=== PATIENT | female | born 1950 | race African-American/Black ===

== ENCOUNTER 2017-01-08 15:58 | Inpatient (IN) | payer OTHER, MEDICARE ==
[2017-01-08] VITALS (23 sets, daily range): BP systolic 161–247; BP diastolic 81–143
[~2017-01-08] VITALS: Ht 175.3 cm; Wt 75.3 kg
[2017-01-08] MEDS ORDERED: Lisinopril 10mg tab ORAL ONE (16:30)
[2017-01-08 17:10] LABS: BASOPHILS % (AUTO) 0.7 % (0.0-2.0); EOSINOPHILS % (AUTO) 0.5 % (0.0-3.0); MEAN CORPUSCULAR HEMOGLOBIN 28.6 PG (27.0-31.0); MEAN CORPUSCULAR HGB CONC 33.1 G/DL (32.0-36.0); MEAN CORPUSCULAR VOLUME 86 FL (80-99); MEAN PLATELET VOLUME 9.1 FL (6.5-10.1); MONOCYTES % (AUTO) 8.7 % (1.0-10.0); NEUTROPHILS % (AUTO) 62.1 % (45.0-75.0); PLATELET COUNT 252 K/UL (150-450); RED BLOOD COUNT 5.49 M/UL (4.20-5.40); RED CELL DISTRIBUTION WIDTH 12.8 % (11.6-14.8); WHITE BLOOD COUNT 6.5 K/UL (4.8-10.8)
[2017-01-08 17:27] LABS: TROPONIN I < 0.30 ng/mL (<=0.30)
[2017-01-08 17:30] LABS: ALBUMIN/GLOBULIN RATIO 1.3 (1.0-2.7); CALCIUM 10.1 mg/dL (8.6-10.2); CREATININE 1.2 mg/dL (0.5-0.9); GLOMERULAR FILTRATION RATE 54.2 mL/min (>60); POTASSIUM 3.5 mEQ/L (3.4-4.9); TOTAL PROTEIN 8.2 g/dL (6.6-8.7)
--- NOTE | 2017-01-08 17:36 | Emergency Room Report ---
History of Present Illness General Chief Complaint: Hypertension Source: Patient Present Illness HPI [id number] BIBEMS from [facility] Urgent care for "hypertensive emergency" per GEORGE. GEORGE from [facility] urgent care called that patient has "new TWI in V4-6" not seen on previous 2016 ECG. TWI in 1 And AVL are old however. Patient went to urgent care because "I felt dizzy today." Now asymptomatic. Denies chest pain , SOB, headache, back pain. Has known HTN. Takes Norvasc 10mg and Lisinopril ?12. Didnt take last 3 days because "I didnt feel well" but cannot qualify what she means by that. Denies nausea/vomiting, abd pain, chest pain, SOB, headache that would've prevented her from taking her meds. Allergies: Coded Allergies: ACETAMINOPHEN (Unverified Allergy, Unknown, 01/08/17) OXYCODONE (Unverified Allergy, Unknown, 01/08/17) Patient History Past Medical History: HTN Past Surgical History: none Pertinent Family History: none Social History: Denies: alcohol use, drug use, smoking Last Menstrual Period: hystrectomy Now: No Immunizations: UTD Reviewed Nursing Documentation: PMH: Agreed, PSxH: Agreed Nursing Documentation-PMH Past Medical History: No History, Except For Hx Hypertension: Yes Review of Systems All Other Systems: negative except mentioned in HPI Physical Exam Vital Signs Date Time Temp Pulse Resp B/P Pulse Ox O2 Delivery O2 Flow Rate FiO2 01/08/17 15:52 98.8 68 16 247/123 99 Room Air Sp02 EP Interpretation: reviewed, normal General Appearance: normal inspection, well appearing, no apparent distress, alert, GCS 15, non-toxic, other - Well appearing laughing, smiling Head: normocephalic, atraumatic Eyes: bilateral eye EOMI, bilateral eye PERRL ENT: normal ENT inspection, hearing grossly normal, normal voice Neck: normal inspection, full range of motion, supple, no bony tend Respiratory: normal inspection, lungs clear, normal breath sounds, no respiratory distress, no retraction, no wheezing Cardiovascular #1: regular rate, rhythm, no edema Gastrointestinal: normal inspection, normal bowel sounds, non tender, soft, no guarding, no hernia Genitourinary: no CVA tenderness Musculoskeletal: normal inspection, back normal, normal range of motion, Shabbir' s Sign negative Neurologic: normal inspection, alert, oriented x3, responsive, consulting group 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 There is some ST downsloping/ repol likely from LVH but no TWI. There is however dynamic change in V4; QRS is no mostly downwards. - Labs show JACINTO - ? end organ damage? - No improvement in BP with PO meds - Started on Esmolol gtt after esmolol bolus Endorsed to ICU for hypertensive emergency Dr Hanson at 638pm EKG Diagnostic Results Rate: normal, other - 1st degree AV block Rhythm: NSR ST Segments: other - ST depressions in lateral leads V5-6 Rhythm Strip Diag. Results EP Interpretation: yes Rate: 71 Rhythm: NSR, no PVC's, no ectopy Chest X-Ray Diagnostic Results Chest X-Ray Diagnostic Results : Chest X-Ray Ordered: Yes # of Views/Limited/Complete: 1 View Indication: Other - HTN EP Interpretation: Yes Interpretation: no consolidation, no effusion, no pneumothorax, no acute cardiopulmonary disease Impression: No acute disease Interpreting ER Provider: Electronically signed by Dr Fernandez Last Vital Signs Date Time Temp Pulse Resp B/P Pulse Ox O2 Delivery O2 Flow Rate FiO2 01/08/17 16:34 68 247/123 01/08/17 16:20 16 Room Air 01/08/17 16:20 98.8 99 Status: improved Disposition: ADMITTED INPATIENT Condition: Critical FRITZ FERNANDEZ M.D. Jan 08, 2017 17:36
[2017-01-08 17:40] LABS: CKMB 2.3 ng/mL (< 3.8)
[2017-01-08] MEDS ORDERED: Esmolol 100mg/10ml Inj IV ONE (17:45)
[2017-01-08] MEDS ORDERED: LISINOPRIL20 MG ORAL (18:00)
[2017-01-08] MEDS ORDERED: NORVASC10 MG ORAL (18:00)
[2017-01-08] MEDS ORDERED: ESMOLOL IV SCH (18:30)
[2017-01-08] MEDS ORDERED: NS IV SCH (18:30)
[2017-01-08] MEDS ORDERED: Nitroglycerin Subl 0.4mg tab (Bottle Of 25) SL PRN (19:00)
[2017-01-08] MEDS ORDERED: Miralax 17gm pkt ORAL PRN (19:00)
[2017-01-08] MEDS ORDERED: Diltiazem 25mg/5ml IV PRN (19:00)
[2017-01-08] MEDS ORDERED: DuoNeb 0.5-3(2.5)mg/3ml neb HHN PRN (19:00)
[2017-01-08] MEDS: Heparin 5000 units/ml inj SUBQ SCH (21:17)
--- NOTE | 2017-01-08 22:52 | History and Physical ---
History of Present Illness General Date patient seen: Jan 08, 2017 Reason for Hospitalization: Hypertension Present Illness HPI 66 year old female with PMHx of HTN, who stopped his BP meds, Norvasc 10mg and Lisinopri a few days ago, brought in from [facility] Ur[facility] care for " hypertensive emergency" Patient went to urgent care because "I felt dizzy today." Now asymptomatic. Denies chest pain , SOB, headache, back pain. Denies nausea/vomiting, abd pain , chest pain, SOB, headache. PA from [facility] urgent care called that patient has "new TWI in V4-6" not seen on previous 2016 ECG. TWI in 1 And AVL are old however. Patient was started on Esmolol drip in ER and transferring to ICU. Allergies: Coded Allergies: ACETAMINOPHEN (Unverified Allergy, Unknown, 01/08/17) OXYCODONE (Unverified Allergy, Unknown, 01/08/17) Medication History Scheduled Amlodipine Besylate (Norvasc), 10 MG ORAL DAILY, (Reported) Lisinopril (Lisinopril*), 10 MG ORAL DAILY, (Reported) Patient History Healthcare decision maker Resuscitation status Full Code Advanced Directive on File No Past Medical/Surgical History Past Medical/Surgical History: (1) Hypertension Review of Systems All Other Systems: negative except mentioned in HPI Physical Exam General Appearance: WD/WN Lines, tubes and drains: peripheral, central line HEENT: normocephalic, atraumatic Neck: non-tender, normal alignment Respiratory/Chest: chest wall non-tender, lungs clear Breasts: no masses Cardiovascular/Chest: normal peripheral pulses Abdomen: normal bowel sounds Genitourinary/Rectal: normal genital exam, normal rectal exam Extremities: normal range of motion Skin Exam: normal pigmentation 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 Last 24 Hour Vital Signs Date Time Temp Pulse Resp B/P Pulse Ox O2 Delivery O2 Flow Rate FiO2 01/08/17 21:06 68 20 193/95 99 Room Air 01/08/17 21:00 62 20 187/102 99 Room Air 01/08/17 20:45 68 20 193/95 99 Room Air 01/08/17 20:30 68 20 196/89 99 Room Air 01/08/17 20:15 68 20 204/94 99 Room Air 01/08/17 20:07 98.8 71 20 232/104 96 Room Air 01/08/17 20:00 66 01/08/17 20:00 98.4 68 20 204/104 99 Room Air 01/08/17 19:18 98.8 71 20 232/104 96 Room Air 01/08/17 19:00 78 20 232/115 96 Room Air 01/08/17 18:45 68 16 241/111 99 Room Air 01/08/17 18:30 80 18 242/122 99 Room Air 01/08/17 17:30 72 18 208/143 98 Room Air 01/08/17 16:34 68 247/123 01/08/17 16:34 247/123 01/08/17 16:20 68 16 Room Air 01/08/17 16:20 98.8 68 16 247/123 99 Room Air 01/08/17 15:52 98.8 68 16 247/123 99 Room Air Laboratory Tests Test 01/08/17 17:00 White Blood Count 6.5 K/UL (4.8-10.8) Red Blood Count 5.49 M/UL (4.20-5.40) H Hemoglobin 15.7 G/DL (12.0-16.0) Hematocrit 47.4 % (37.0-47.0) H Mean Corpuscular Volume 86 FL (80-99) Mean Corpuscular Hemoglobin 28.6 PG (27.0-31.0) Mean Corpuscular Hemoglobin Concent 33.1 G/DL (32.0-36.0) Red Cell Distribution Width 12.8 % (11.6-14.8) Platelet Count 252 K/UL (150-450) Mean Platelet Volume 9.1 FL (6.5-10.1) Neutrophils (%) (Auto) 62.1 % (45.0-75.0) Lymphocytes (%) (Auto) 28.0 % (20.0-45.0) Monocytes (%) (Auto) 8.7 % (1.0-10.0) Eosinophils (%) (Auto) 0.5 % (0.0-3.0) Basophils (%) (Auto) 0.7 % (0.0-2.0) Sodium Level 140 mEQ/L (135-145) Potassium Level 3.5 mEQ/L (3.4-4.9) Chloride Level 98 mEQ/L (98-107) Carbon Dioxide Level 27 mEQ/L (20-30) Anion Gap 15 (5-15) Blood Urea Nitrogen 13 mg/dL (7-23) Creatinine 1.2 mg/dL (0.5-0.9) H Estimat Glomerular Filtration Rate 54.2 mL/min (>60) Glucose Level 142 mg/dL (74-106) H Calcium Level 10.1 mg/dL (8.6-10.2) Total Bilirubin 0.3 mg/dL (0.0-1.2) Aspartate Amino Transf (AST/SGOT) 18 U/L (5-40) Alanine Aminotransferase (ALT/SGPT) 16 U/L (3-33) Alkaline Phosphatase 88 U/L (35-104) Total Creatine Kinase 59 U/L (26-140) Creatine Kinase MB 2.3 ng/mL (< 3.8) Creatine Kinase MB Relative Index 3.8 Troponin I < 0.30 ng/mL (<=0.30) Total Protein 8.2 g/dL (6.6-8.7) Albumin 4.7 g/dL (3.5-5.2) Globulin 3.5 g/dL Albumin/Globulin Ratio 1.3 (1.0-2.7) Height (Feet): 5 Height (Inches): 9.00 Weight (Pounds): 165 Medications Current Medications Medications (Trade) Dose Ordered Sig/Melanie Route PRN Reason Start Time Stop Time Status Last Admin Dose Admin Albuterol/ Ipratropium (DuoNeb 0.5-3(2.5)mg/3ml) 3 ml Q4H PRN HHN Shortness of Breath 01/08/17 19:00 01/13/17 18:59 Amlodipine Besylate (Norvasc) 10 mg DAILY ORAL 01/09/17 09:00 02/08/17 08:59 Diltiazem HCl (Cardizem) 10 mg Q1H PRN IV HR > 120 01/08/17 19:00 02/07/17 18:59 Enalaprilat (Vasotec) 2.5 mg Q6H PRN IV sbp more than 160 01/08/17 19:00 02/07/17 18:59 Esmolol HCl (Brevibloc) 250 ml @ 0 mls/hr Q24H IV 01/08/17 21:00 8/30/17 20:59 01/08/17 21:15 Heparin Sodium (Porcine) 5000 units 5,000 units EVERY 12 HOURS SUBQ 01/08/17 21:00 02/07/17 20:59 01/08/17 21:17 Nitroglycerin (Ntg) 0.4 mg Every 5 Minutes PRN SL Prn Chest Pain 01/08/17 19:00 02/07/17 18:59 Ondansetron HCl (Zofran) 4 mg Q6H PRN IVP Nausea & Vomiting 01/08/17 19:00 02/07/17 18:59 Pantoprazole (Protonix) 40 mg DAILY ORAL 01/09/17 09:00 02/08/17 08:59 Polyethylene Glycol (Miralax) 17 gm DAILYPRN PRN ORAL Constipation 01/08/17 19:00 02/07/17 18:59 Temazepam (Restoril) 15 mg HSPRN PRN ORAL Insomnia 01/08/17 19:00 01/15/17 18:59 Assessment/Plan Problem List: (1) Hypertensive emergency ICD Codes: I16.1 - Hypertensive emergency SNOMED: 595569139030817 (2) Acute encephalopathy ICD Codes: G93.40 - Encephalopathy, unspecified SNOMED: 8109039 (3) Hypertensive emergency, no CHF ICD Codes: I16.1 - Hypertensive emergency SNOMED: 877024911375713 Assessment/Plan icu monitoring Esmolol drip echo cardiac evaluation dvt prophylaxis resume home bp medIGLESIA Gonzalez Jan 08, 2017 22:51
[2017-01-08] MEDS: Enalaprilat 2.5mg/2ml Inj IV PRN (23:32)
[2017-01-09] VITALS (59 sets, daily range): BP systolic 143–188; BP diastolic 64–134
[2017-01-09 05:39] LABS: BASOPHILS % (AUTO) 0.5 % (0.0-2.0); EOSINOPHILS % (AUTO) 0.5 % (0.0-3.0); LYMPHOCYTES % (AUTO) 19.9 % (20.0-45.0); MEAN CORPUSCULAR HEMOGLOBIN 28.2 PG (27.0-31.0); MEAN CORPUSCULAR HGB CONC 32.4 G/DL (32.0-36.0); MEAN CORPUSCULAR VOLUME 87 FL (80-99); MEAN PLATELET VOLUME 8.8 FL (6.5-10.1); MONOCYTES % (AUTO) 8.1 % (1.0-10.0); NEUTROPHILS % (AUTO) 70.9 % (45.0-75.0); PLATELET COUNT 295 K/UL (150-450); RED BLOOD COUNT 4.92 M/UL (4.20-5.40); RED CELL DISTRIBUTION WIDTH 12.4 % (11.6-14.8); WHITE BLOOD COUNT 7.1 K/UL (4.8-10.8)
[2017-01-09 05:42] LABS: PROTHROMBIN TIME 10.8 SEC (9.30-11.50)
[2017-01-09] MEDS: Enalaprilat 2.5mg/2ml Inj IV PRN (05:45)
[2017-01-09 06:09] LABS: TROPONIN I < 0.30 ng/mL (<=0.30)
[2017-01-09 06:10] LABS: CHOLESTEROL/HDL RATIO 5.9 (3.3-4.4); CRP QUANT 1.1 mg/dL (< 0.5)
[2017-01-09 06:24] LABS: THYROID STIMULATING HORMONE 2.01 uIU/mL (0.300-4.500)
[2017-01-09] MEDS: Lisinopril 20mg tab ORAL SCH ×2 (08:52→20:29)
[2017-01-09] MEDS: Heparin 5000 units/ml inj SUBQ SCH ×2 (08:56→20:30)
--- NOTE | 2017-01-09 09:51 | Pulmonolgy Critical Care Note ---
Critical Care - Asmt/Plan Problems: (1) Acute encephalopathy (2) Hypertensive emergency (3) Hypertensive nephropathy Respiratory: monitor respiratory rate Cardiac: other - taper off esmolol, add hydralazine Renal: F/U I&O Gastrointestinal: continue feedings/current rate Hematologic: monitor H/H Neurologic: PRN Ativan, PRN Morphine Prophylaxis: Heparin Disposition: keep in ICU Notes Reviewed: renal Discussed with: nurses, bilingual patient support caseworkermanager systems - Objective Last 24 Hour Vital Signs Date Time Temp Pulse Resp B/P Pulse Ox O2 Delivery O2 Flow Rate FiO2 01/09/17 08:52 170/81 01/09/17 08:52 55 170/81 01/09/17 08:45 55 15 170/81 99 Room Air 01/09/17 08:30 55 13 149/79 99 Room Air 01/09/17 08:15 55 15 166/82 98 Room Air 01/09/17 08:00 98.6 56 12 168/84 98 Room Air 01/09/17 08:00 60 01/09/17 07:45 56 13 167/84 98 Room Air 01/09/17 07:30 56 12 170/82 99 Room Air 01/09/17 07:18 57 18 Room Air 21 01/09/17 07:15 57 12 156/81 96 Room Air 01/09/17 07:00 58 13 162/87 98 Room Air 01/09/17 06:45 65 15 188/134 99 Room Air 01/09/17 06:30 58 19 151/82 98 Room Air 01/09/17 06:15 58 20 173/70 98 Room Air 01/09/17 06:00 57 19 154/83 98 Room Air 01/09/17 05:45 57 18 166/83 98 Room Air 01/09/17 05:45 172/77 01/09/17 05:30 57 16 172/77 98 Room Air 01/09/17 05:15 56 19 164/70 98 Room Air 01/09/17 05:00 57 19 164/80 98 Room Air 01/09/17 04:45 59 15 163/80 97 Room Air 01/09/17 04:30 57 15 163/78 97 Room Air 01/09/17 04:15 59 15 176/78 97 Room Air 01/09/17 04:00 57 01/09/17 04:00 58 19 166/82 82 Room Air 01/09/17 03:45 60 15 166/87 97 Room Air 01/09/17 03:30 59 15 174/85 98 Room Air 01/09/17 03:15 58 15 177/70 98 Room Air 01/09/17 03:00 57 18 179/83 98 Room Air 01/09/17 02:45 59 18 172/87 99 Room Air 01/09/17 02:30 59 18 163/85 99 Room Air 01/09/17 02:15 60 17 144/82 99 Room Air 01/09/17 02:00 58 18 147/80 97 Room Air 01/09/17 01:45 62 17 149/75 99 Room Air 01/09/17 01:30 60 18 150/77 99 Room Air 01/09/17 01:15 63 18 173/125 99 Room Air 01/09/17 01:00 59 20 160/79 97 Room Air 01/09/17 00:45 59 19 159/75 97 Room Air 01/09/17 00:30 59 19 152/71 97 Room Air 01/09/17 00:15 56 19 154/69 98 Room Air 01/09/17 00:00 98.4 57 19 144/65 97 Room Air 01/09/17 00:00 57 01/08/17 23:45 58 19 161/81 97 Room Air 01/08/17 23:32 180/89 01/08/17 23:30 58 16 170/87 98 Room Air 01/08/17 23:15 58 14 180/89 99 Room Air 01/08/17 23:00 59 16 187/93 99 Room Air 01/08/17 22:45 58 15 187/93 99 Room Air 01/08/17 22:30 59 15 176/109 99 Room Air 01/08/17 22:15 59 13 194/93 99 Room Air 01/08/17 22:00 57 16 186/85 99 Room Air 01/08/17 21:45 59 16 174/88 99 Room Air 01/08/17 21:30 60 13 172/85 98 Room Air 01/08/17 21:15 60 20 198/122 98 Room Air 01/08/17 21:06 68 20 193/95 99 Room Air 01/08/17 21:00 62 20 187/102 99 Room Air 01/08/17 20:45 68 20 193/95 99 Room Air 01/08/17 20:30 68 20 196/89 99 Room Air 01/08/17 20:15 68 20 204/94 99 Room Air 01/08/17 20:07 98.8 71 20 232/104 96 Room Air 01/08/17 20:00 66 01/08/17 20:00 98.4 68 20 204/104 99 Room Air 01/08/17 19:18 98.8 71 20 232/104 96 Room Air 01/08/17 19:00 78 20 232/115 96 Room Air 01/08/17 18:45 68 16 241/111 99 Room Air 01/08/17 18:30 80 18 242/122 99 Room Air 01/08/17 17:30 72 18 208/143 98 Room Air 01/08/17 16:34 68 247/123 01/08/17 16:34 247/123 01/08/17 16:20 68 16 Room Air 01/08/17 16:20 98.8 68 16 247/123 99 Room Air 01/08/17 15:52 98.8 68 16 247/123 99 Room Air Status: awake Condition: critical HEENT: atraumatic Neck: full ROM Heart: HR/BP stable, HR/BP unstable Abdomen: soft, non-tender, feeding tube Extremities: no C/C/E Critical Care - Subjective ROS Limited/Unobtainable: No ICU Day: 2 Condition: critical EKG Rhythm: Sinus Rhythm FI02: 21 Sputum Amount: None Secretions: none Drips: esmolol I&O: Intake and Output 01/08/17 01/09/17 19:00 07:00 Intake Total 40.8 ml 832.764 ml Output Total 600 ml Balance 40.8 ml 232.764 ml Intake Oral 200 ml IV Total 40.8 ml 632.764 ml Output Urine Total 600 ml # Voids 2 CXR: MASOUD Labs: Laboratory Tests Test 01/08/17 17:00 01/09/17 04:15 White Blood Count 6.5 K/UL (4.8-10.8) 7.1 K/UL (4.8-10.8) Red Blood Count 5.49 M/UL (4.20-5.40) H 4.92 M/UL (4.20-5.40) Hemoglobin 15.7 G/DL (12.0-16.0) 13.9 G/DL (12.0-16.0) Hematocrit 47.4 % (37.0-47.0) H 42.9 % (37.0-47.0) Mean Corpuscular Volume 86 FL (80-99) 87 FL (80-99) Mean Corpuscular Hemoglobin 28.6 PG (27.0-31.0) 28.2 PG (27.0-31.0) Mean Corpuscular Hemoglobin Concent 33.1 G/DL (32.0-36.0) 32.4 G/DL (32.0-36.0) Red Cell Distribution Width 12.8 % (11.6-14.8) 12.4 % (11.6-14.8) Platelet Count 252 K/UL (150-450) 295 K/UL (150-450) Mean Platelet Volume 9.1 FL (6.5-10.1) 8.8 FL (6.5-10.1) Neutrophils (%) (Auto) 62.1 % (45.0-75.0) 70.9 % (45.0-75.0) Lymphocytes (%) (Auto) 28.0 % (20.0-45.0) 19.9 % (20.0-45.0) L Monocytes (%) (Auto) 8.7 % (1.0-10.0) 8.1 % (1.0-10.0) Eosinophils (%) (Auto) 0.5 % (0.0-3.0) 0.5 % (0.0-3.0) Basophils (%) (Auto) 0.7 % (0.0-2.0) 0.5 % (0.0-2.0) Sodium Level 140 mEQ/L (135-145) Potassium Level 3.5 mEQ/L (3.4-4.9) Chloride Level 98 mEQ/L (98-107) Carbon Dioxide Level 27 mEQ/L (20-30) Anion Gap 15 (5-15) Blood Urea Nitrogen 13 mg/dL (7-23) Creatinine 1.2 mg/dL (0.5-0.9) H Estimat Glomerular Filtration Rate 54.2 mL/min (>60) Glucose Level 142 mg/dL (74-106) H Calcium Level 10.1 mg/dL (8.6-10.2) Total Bilirubin 0.3 mg/dL (0.0-1.2) Aspartate Amino Transf (AST/SGOT) 18 U/L (5-40) Alanine Aminotransferase (ALT/SGPT) 16 U/L (3-33) Alkaline Phosphatase 88 U/L (35-104) Total Creatine Kinase 59 U/L (26-140) Creatine Kinase MB 2.3 ng/mL (< 3.8) Creatine Kinase MB Relative Index 3.8 Troponin I < 0.30 ng/mL (<=0.30) < 0.30 ng/mL (<=0.30) Total Protein 8.2 g/dL (6.6-8.7) Albumin 4.7 g/dL (3.5-5.2) Globulin 3.5 g/dL Albumin/Globulin Ratio 1.3 (1.0-2.7) Prothrombin Time 10.8 SEC (9.30-11.50) Prothromb Time International Ratio 1.0 (0.9-1.1) Activated Partial Thromboplast Time 26 SEC (23-33) C-Reactive Protein, Quantitative 1.1 mg/dL (< 0.5) H Triglycerides Level 97 mg/dL (< 150) Cholesterol Level 290 mg/dL (< 200) H LDL Cholesterol 222 mg/dL (60-99) H HDL Cholesterol 49 mg/dL (> 60) Cholesterol/HDL Ratio 5.9 (3.3-4.4) H Thyroid Stimulating Hormone (TSH) 2.010 uIU/mL (0.300-4.500) IGLESIA LOPES Jan 09, 2017 09:51
--- NOTE | 2017-01-09 10:32 | Diagnostic Imaging Report ---
Indication: Chest pain Technique: Single portable AP view of the chest. Findings: Comparison: None. Aortic arch mildly calcified. The bones and extra pulmonary soft tissues, remainder of the cardiomediastinal silhouette, pulmonary vasculature and parenchyma, and pleural surfaces are unremarkable. IMPRESSION: Sclerosis Otherwise negative portable AP chest.
--- NOTE | 2017-01-09 12:03 | Cardiology Progress Note ---
Assessment/Plan Assessment/Plan hytensive encphaloapthy hyperlipidemia med noncomplaince hypothryoid resume clinodien to prevent rebound increase joce stop esmolol drip on clonidine [id number] Objective Last 24 Hour Vital Signs Date Time Temp Pulse Resp B/P Pulse Ox O2 Delivery O2 Flow Rate FiO2 01/09/17 11:45 57 20 167/83 97 Room Air 01/09/17 11:30 55 26 163/76 98 Room Air 01/09/17 11:15 56 21 163/76 98 Room Air 01/09/17 11:00 57 24 156/72 100 Room Air 01/09/17 10:15 56 36 144/87 98 Room Air 01/09/17 10:00 53 20 162/80 98 Room Air 01/09/17 09:45 55 15 162/80 99 Room Air 01/09/17 09:30 56 14 157/78 99 Room Air 01/09/17 09:15 53 16 157/78 99 Room Air 01/09/17 09:00 53 17 167/82 98 Room Air 01/09/17 08:52 170/81 01/09/17 08:52 55 170/81 01/09/17 08:45 55 15 170/81 99 Room Air 01/09/17 08:30 55 13 149/79 99 Room Air 01/09/17 08:15 55 15 166/82 98 Room Air 01/09/17 08:00 98.6 56 12 168/84 98 Room Air 01/09/17 08:00 60 01/09/17 07:45 56 13 167/84 98 Room Air 01/09/17 07:30 56 12 170/82 99 Room Air 01/09/17 07:18 57 18 Room Air 21 01/09/17 07:15 57 12 156/81 96 Room Air 01/09/17 07:00 58 13 162/87 98 Room Air 01/09/17 06:45 65 15 188/134 99 Room Air 01/09/17 06:30 58 19 151/82 98 Room Air 01/09/17 06:15 58 20 173/70 98 Room Air 01/09/17 06:00 57 19 154/83 98 Room Air 01/09/17 05:45 57 18 166/83 98 Room Air 01/09/17 05:45 172/77 01/09/17 05:30 57 16 172/77 98 Room Air 01/09/17 05:15 56 19 164/70 98 Room Air 01/09/17 05:00 57 19 164/80 98 Room Air 01/09/17 04:45 59 15 163/80 97 Room Air 01/09/17 04:30 57 15 163/78 97 Room Air 01/09/17 04:15 59 15 176/78 97 Room Air 01/09/17 04:00 57 01/09/17 04:00 58 19 166/82 82 Room Air 01/09/17 03:45 60 15 166/87 97 Room Air 01/09/17 03:30 59 15 174/85 98 Room Air 01/09/17 03:15 58 15 177/70 98 Room Air 01/09/17 03:00 57 18 179/83 98 Room Air 01/09/17 02:45 59 18 172/87 99 Room Air 01/09/17 02:30 59 18 163/85 99 Room Air 01/09/17 02:15 60 17 144/82 99 Room Air 01/09/17 02:00 58 18 147/80 97 Room Air 01/09/17 01:45 62 17 149/75 99 Room Air 01/09/17 01:30 60 18 150/77 99 Room Air 01/09/17 01:15 63 18 173/125 99 Room Air 01/09/17 01:00 59 20 160/79 97 Room Air 01/09/17 00:45 59 19 159/75 97 Room Air 01/09/17 00:30 59 19 152/71 97 Room Air 01/09/17 00:15 56 19 154/69 98 Room Air 01/09/17 00:00 98.4 57 19 144/65 97 Room Air 01/09/17 00:00 57 01/08/17 23:45 58 19 161/81 97 Room Air 01/08/17 23:32 180/89 01/08/17 23:30 58 16 170/87 98 Room Air 01/08/17 23:15 58 14 180/89 99 Room Air 01/08/17 23:00 59 16 187/93 99 Room Air 01/08/17 22:45 58 15 187/93 99 Room Air 01/08/17 22:30 59 15 176/109 99 Room Air 01/08/17 22:15 59 13 194/93 99 Room Air 01/08/17 22:00 57 16 186/85 99 Room Air 01/08/17 21:45 59 16 174/88 99 Room Air 01/08/17 21:30 60 13 172/85 98 Room Air 01/08/17 21:15 60 20 198/122 98 Room Air 01/08/17 21:06 68 20 193/95 99 Room Air 01/08/17 21:00 62 20 187/102 99 Room Air 01/08/17 20:45 68 20 193/95 99 Room Air 01/08/17 20:30 68 20 196/89 99 Room Air 01/08/17 20:15 68 20 204/94 99 Room Air 01/08/17 20:07 98.8 71 20 232/104 96 Room Air 01/08/17 20:00 66 01/08/17 20:00 98.4 68 20 204/104 99 Room Air 01/08/17 19:18 98.8 71 20 232/104 96 Room Air 01/08/17 19:00 78 20 232/115 96 Room Air 01/08/17 18:45 68 16 241/111 99 Room Air 01/08/17 18:30 80 18 242/122 99 Room Air 01/08/17 17:30 72 18 208/143 98 Room Air 01/08/17 16:34 68 247/123 01/08/17 16:34 247/123 01/08/17 16:20 68 16 Room Air 01/08/17 16:20 98.8 68 16 247/123 99 Room Air 01/08/17 15:52 98.8 68 16 247/123 99 Room Air Intake and Output 01/08/17 01/09/17 19:00 07:00 Intake Total 40.8 ml 832.764 ml Output Total 600 ml Balance 40.8 ml 232.764 ml Intake Oral 200 ml IV Total 40.8 ml 632.764 ml Output Urine Total 600 ml # Voids 2 Laboratory Tests Test 01/08/17 17:00 01/09/17 04:15 White Blood Count 6.5 K/UL (4.8-10.8) 7.1 K/UL (4.8-10.8) Red Blood Count 5.49 M/UL (4.20-5.40) H 4.92 M/UL (4.20-5.40) Hemoglobin 15.7 G/DL (12.0-16.0) 13.9 G/DL (12.0-16.0) Hematocrit 47.4 % (37.0-47.0) H 42.9 % (37.0-47.0) Mean Corpuscular Volume 86 FL (80-99) 87 FL (80-99) Mean Corpuscular Hemoglobin 28.6 PG (27.0-31.0) 28.2 PG (27.0-31.0) Mean Corpuscular Hemoglobin Concent 33.1 G/DL (32.0-36.0) 32.4 G/DL (32.0-36.0) Red Cell Distribution Width 12.8 % (11.6-14.8) 12.4 % (11.6-14.8) Platelet Count 252 K/UL (150-450) 295 K/UL (150-450) Mean Platelet Volume 9.1 FL (6.5-10.1) 8.8 FL (6.5-10.1) Neutrophils (%) (Auto) 62.1 % (45.0-75.0) 70.9 % (45.0-75.0) Lymphocytes (%) (Auto) 28.0 % (20.0-45.0) 19.9 % (20.0-45.0) L Monocytes (%) (Auto) 8.7 % (1.0-10.0) 8.1 % (1.0-10.0) Eosinophils (%) (Auto) 0.5 % (0.0-3.0) 0.5 % (0.0-3.0) Basophils (%) (Auto) 0.7 % (0.0-2.0) 0.5 % (0.0-2.0) Sodium Level 140 mEQ/L (135-145) Potassium Level 3.5 mEQ/L (3.4-4.9) Chloride Level 98 mEQ/L (98-107) Carbon Dioxide Level 27 mEQ/L (20-30) Anion Gap 15 (5-15) Blood Urea Nitrogen 13 mg/dL (7-23) Creatinine 1.2 mg/dL (0.5-0.9) H Estimat Glomerular Filtration Rate 54.2 mL/min (>60) Glucose Level 142 mg/dL (74-106) H Calcium Level 10.1 mg/dL (8.6-10.2) Total Bilirubin 0.3 mg/dL (0.0-1.2) Aspartate Amino Transf (AST/SGOT) 18 U/L (5-40) Alanine Aminotransferase (ALT/SGPT) 16 U/L (3-33) Alkaline Phosphatase 88 U/L (35-104) Total Creatine Kinase 59 U/L (26-140) Creatine Kinase MB 2.3 ng/mL (< 3.8) Creatine Kinase MB Relative Index 3.8 Troponin I < 0.30 ng/mL (<=0.30) < 0.30 ng/mL (<=0.30) Total Protein 8.2 g/dL (6.6-8.7) Albumin 4.7 g/dL (3.5-5.2) Globulin 3.5 g/dL Albumin/Globulin Ratio 1.3 (1.0-2.7) Prothrombin Time 10.8 SEC (9.30-11.50) Prothromb Time International Ratio 1.0 (0.9-1.1) Activated Partial Thromboplast Time 26 SEC (23-33) C-Reactive Protein, Quantitative 1.1 mg/dL (< 0.5) H Triglycerides Level 97 mg/dL (< 150) Cholesterol Level 290 mg/dL (< 200) H LDL Cholesterol 222 mg/dL (60-99) H HDL Cholesterol 49 mg/dL (> 60) Cholesterol/HDL Ratio 5.9 (3.3-4.4) H Thyroid Stimulating Hormone (TSH) 2.010 uIU/mL (0.300-4.500) JESUS ROE Jan 09, 2017 12:03
--- NOTE | 2017-01-09 12:47 | Consultation ---
Consult Note Consult Note Chief Complaint: Hypertension 66YOF BIBEMS from [facility] for "hypertensive emergency" per GEORGE. GEORGE from [facility] urgent care called that patient has "new TWI in V4-6" not seen on previous 2016 ECG. TWI in 1 And AVL are old however. Patient went to urgent care because "I felt dizzy today." Now asymptomatic. Denies chest pain , SOB, headache, back pain. Has known HTN. Takes Norvasc 10mg and Lisinopril ?12. Didnt take last 3 days because "I didnt feel well" but cannot qualify what she means by that. Denies nausea/vomiting, abd pain, chest pain, SOB, headache that would've prevented her from taking her meds. Allergies: Coded Allergies: ACETAMINOPHEN (Unverified Allergy, Unknown, 01/08/17) OXYCODONE (Unverified Allergy, Unknown, 01/08/17) Past Medical History: HTN Last Menstrual Period: hystrectomy Hx Hypertension: Yes Patient examined- Data reviewed On esmolol drip Bradycardic Discussed with pharmacy director/Plan Status; (1) Acute encephalopathy (2) Hypertensive emergency (3) Hypo Thyroidism (4) High Cholestrol Plan; UA Adjust BP meds Monitor renal parameters Avoid nephrotoxics PEr orders SONG PEREA Jan 09, 2017 12:47
[2017-01-09] MEDS: HydrALAZINE 50mg tab ORAL SCH ×2 (13:14→21:01)
--- NOTE | 2017-01-09 17:06 | Cardiology Report ---
APPROVED REPORT EXAM: Two-dimensional and M-mode echocardiogram with Doppler and color Doppler. INDICATION Left Ventricular Function M-Mode DIMENSIONS IVSd1.2 (0.7-1.1cm)Left Atrium (MM)4.1 (1.6-4.0cm) LVDd4.3 (3.5-5.6cm)Aortic Root2.2 (2.0-3.7cm) PWd1.4 (0.7-1.1cm)Aortic Cusp Exc.1.7 (1.5-2.0cm) LVDs2.6 (2.5-4.0cm) PWs2.2 cm Normal left ventricular chamber size, systolic function and wall motion. Left ventricular ejection fraction estimated to be 55-60 %. Mild left ventricular hypertrophy. Anterior Echo-free space, may be due to pericardial fat or effusion. Mild left atrial enlargement. Right cardiac chamber sizes are within normal limits. Mild focal aortic valve sclerosis with adequate cusp excursion. Mildly thickened mitral valve leaflets with normal excursion. Mild mitral annulus and aortic root calcification. Normal pulmonic valve structure. Normal tricuspid valve structure. IVC is normal in size with physiologic collapse. A color flow and spectral Doppler study was performed and revealed: No aortic regurgitation. Trace mitral regurgitation. Mitral diastolic velocities suggest reduced left ventricular relaxation (Grade I). Mild to moderate tricuspid regurgitation. Tricuspid systolic velocities suggests peak right ventricular systolic pressure of 46 mmHg, consistent with moderate pulmonary hypertension. Trace pulmonic regurgitation present.
[2017-01-09 19:33] LABS: KETONES,URINE 2+ (NEGATIVE); LEUKOCYTE ESTERASE ,URINE 3+ (NEGATIVE); NITRITE,URINE NEGATIVE (NEGATIVE); PH,URINE 5 (4.5-8.0); PROTEIN,URINE 2+ (NEGATIVE); UROBILINOGEN,URINE NORMAL MG/DL (0.0-1.0)
[2017-01-09 19:34] LABS: APPEARANCE,URINE SLIGHTLY CLOUDY
[2017-01-09 19:44] LABS: AMORPHOUS SEDIMENT,UR FEW /LPF; BACTERIA,URINE MODERATE /HPF; SQUAMOUS EPITHELIAL CELL,UR FEW /LPF (NONE/OCC)
[2017-01-09] MEDS ORDERED: Atorvastatin 20mg tab ORAL SCH (21:00)
[2017-01-10] VITALS (20 sets, daily range): BP systolic 134–166; BP diastolic 59–77
[2017-01-10 05:37] LABS: BASOPHILS % (AUTO) 0.6 % (0.0-2.0); EOSINOPHILS % (AUTO) 1.9 % (0.0-3.0); LYMPHOCYTES % (AUTO) 32.3 % (20.0-45.0); MEAN CORPUSCULAR HEMOGLOBIN 27.7 PG (27.0-31.0); MEAN CORPUSCULAR HGB CONC 31.8 G/DL (32.0-36.0); MEAN CORPUSCULAR VOLUME 87 FL (80-99); MEAN PLATELET VOLUME 9.1 FL (6.5-10.1); MONOCYTES % (AUTO) 8.5 % (1.0-10.0); NEUTROPHILS % (AUTO) 56.6 % (45.0-75.0); PLATELET COUNT 258 K/UL (150-450); RED BLOOD COUNT 4.64 M/UL (4.20-5.40); RED CELL DISTRIBUTION WIDTH 12.2 % (11.6-14.8); WHITE BLOOD COUNT 7.4 K/UL (4.8-10.8)
[2017-01-10] MEDS: HydrALAZINE 50mg tab ORAL SCH ×3 (05:59→22:15)
[2017-01-10 06:41] LABS: TROPONIN I < 0.30 ng/mL (<=0.30)
[2017-01-10 06:54] LABS: ALANINE AMINOTRANSFERASE 10 U/L (3-33); ALBUMIN/GLOBULIN RATIO 1.2 (1.0-2.7); ANION GAP 12 (5-15); ASPARTATE AMINO TRANSFERASE 15 U/L (5-40); CALCIUM 9.6 mg/dL (8.6-10.2); CARBON DIOXIDE 24 mEQ/L (20-30); CHLORIDE 105 mEQ/L (98-107); CREATININE 1.2 mg/dL (0.5-0.9); CRP QUANT 1.1 mg/dL (< 0.5); GLOMERULAR FILTRATION RATE 54.2 mL/min (>60); HEMOLYSIS 3; MAGNESIUM 1.8 mg/dL (1.7-2.5); POTASSIUM 3.8 mEQ/L (3.4-4.9); SODIUM 141 mEQ/L (135-145); TOTAL PROTEIN 6.7 g/dL (6.6-8.7); URIC ACID 7.7 mg/dL (3.0-7.5)
[2017-01-10 07:14] LABS: HEMOGLOBIN A1C 9.2 % (< 6.0)
[2017-01-10] MEDS: Heparin 5000 units/ml inj SUBQ SCH ×2 (08:58→20:40)
[2017-01-10] MEDS: Lisinopril 20mg tab ORAL SCH ×2 (08:58→20:38)
--- NOTE | 2017-01-10 09:33 | General Progress Note ---
Assessment/Plan Assessment/Plan status; (1) Acute encephalopathy resolved (2) Hypertensive emergency resolved (3) Hypo Thyroidism (4) High Cholestrol Plan; further adjustment of BP meds, to avoid further low HR Monitor renal parameters Avoid nephrotoxics Per orders Subjective ROS Limited/Unobtainable: No Allergies: Coded Allergies: ACETAMINOPHEN (Unverified Allergy, Unknown, 01/08/17) OXYCODONE (Unverified Allergy, Unknown, 01/08/17) Objective Last 24 Hour Vital Signs Date Time Temp Pulse Resp B/P Pulse Ox O2 Delivery O2 Flow Rate FiO2 01/10/17 09:00 53 24 157/67 99 Room Air 01/10/17 08:58 138/62 01/10/17 08:00 97.9 54 19 138/62 99 Room Air 01/10/17 08:00 51 01/10/17 07:33 59 18 Room Air 01/10/17 07:00 48 20 134/59 99 Room Air 01/10/17 06:00 52 20 151/64 99 Room Air 01/10/17 05:59 146/69 01/10/17 05:58 146/69 01/10/17 05:00 47 20 146/69 98 Room Air 01/10/17 04:00 49 01/10/17 04:00 98.1 51 22 158/72 98 Room Air 01/10/17 03:00 46 20 156/65 99 Room Air 01/10/17 02:00 51 25 166/73 100 Room Air 01/10/17 01:00 52 26 141/63 99 Room Air 01/10/17 00:00 98.3 52 26 160/67 99 Room Air 01/10/17 00:00 53 01/09/17 23:00 54 20 165/66 99 Room Air 01/09/17 22:00 56 25 143/85 98 Room Air 01/09/17 21:01 178/92 01/09/17 21:01 172/82 01/09/17 21:00 56 27 175/74 99 Room Air 01/09/17 20:29 151/92 01/09/17 20:00 61 01/09/17 20:00 98.6 57 23 151/92 100 Room Air 01/09/17 19:00 56 22 148/75 100 Room Air 01/09/17 19:00 61 18 Room Air 21 01/09/17 18:00 50 22 168/69 98 Room Air 01/09/17 17:00 53 16 158/64 97 Room Air 01/09/17 16:00 98.4 55 19 162/73 98 Room Air 01/09/17 16:00 54 01/09/17 15:00 52 18 152/65 97 Room Air 01/09/17 14:00 57 19 157/70 97 Room Air 01/09/17 13:14 149/81 01/09/17 13:14 149/81 01/09/17 13:00 58 22 149/81 100 Room Air 01/09/17 12:30 54 22 164/77 98 Room Air 01/09/17 12:00 55 01/09/17 12:00 98.3 55 25 159/80 97 Room Air 01/09/17 11:45 57 20 167/83 97 Room Air 01/09/17 11:30 55 26 163/76 98 Room Air 01/09/17 11:15 56 21 163/76 98 Room Air 01/09/17 11:00 57 24 156/72 100 Room Air 01/09/17 10:15 56 36 144/87 98 Room Air 01/09/17 10:00 53 20 162/80 98 Room Air 01/09/17 09:45 55 15 162/80 99 Room Air Intake and Output 01/09/17 01/10/17 19:00 07:00 Intake Total 698.235 ml 360 ml Output Total 150 ml 250 ml Balance 548.235 ml 110 ml Intake Oral 290 ml 0 ml IV Total 408.235 ml Other 360 ml Output Urine Total 150 ml 250 ml # Voids 1 1 Laboratory Tests 01/09/17 18:30: Urine Color Yellow, Urine Appearance Slightly cloudy, Urine pH 5, Urine Specific [place] 1.025, Urine Protein 2+H, Urine Glucose (UA) Negative, Urine Ketones 2+H, Urine Occult Blood Negative, Urine Nitrite Negative, Urine Bilirubin Negative, Urine Urobilinogen Normal, Urine Leukocyte Esterase 3+H, Urine RBC 2-4H, Urine WBC 5-10H, Urine Squamous Epithelial Cells Few, Urine Amorphous Sediment FewH, Urine Bacteria ModerateH 01/10/17 04:20: White Blood Count 7.4, Red Blood Count 4.64, Hemoglobin 12.9, Hematocrit 40.4, Mean Corpuscular Volume 87, Mean Corpuscular Hemoglobin 27.7, Mean Corpuscular Hemoglobin Concent 31.8L, Red Cell Distribution Width 12.2, Platelet Count 258, Mean Platelet Volume 9.1, Neutrophils (%) (Auto) 56.6, Lymphocytes (%) (Auto) 32.3, Monocytes (%) (Auto) 8.5, Eosinophils (%) (Auto) 1.9, Basophils (%) (Auto ) 0.6, Sodium Level 141, Potassium Level 3.8, Chloride Level 105, Carbon Dioxide Level 24, Anion Gap 12, Blood Urea Nitrogen 16, Creatinine 1.2H, Estimat Glomerular Filtration Rate 54.2, Glucose Level 191H, Hemoglobin A1c 9.2H , Insulin Level [Pending], Uric Acid 7.7H, Calcium Level 9.6, Phosphorus Level 3.0, Magnesium Level 1.8, Total Bilirubin 0.2, Gamma Glutamyl Transpeptidase 14 , Aspartate Amino Transf (AST/SGOT) 15, Alanine Aminotransferase (ALT/SGPT) 10, Alkaline Phosphatase 68, Total Creatine Kinase 50, Troponin I < 0.30, C- Reactive Protein, Quantitative 1.1H, Pro-B-Type Natriuretic Peptide 467H, Total Protein 6.7, Albumin 3.7, Globulin 3.0, Albumin/Globulin Ratio 1.2 Height (Feet): 5 Height (Inches): 9.00 Weight (Pounds): 164 General Appearance: no apparent distress Cardiovascular: bradycardia Respiratory/Chest: lungs clear Abdomen: soft SONG PEREA Jan 10, 2017 09:33
--- NOTE | 2017-01-10 11:16 | Pulmonolgy Critical Care Note ---
Critical Care - Asmt/Plan Problems: (1) Acute encephalopathy (2) Hypertensive emergency (3) Hypertensive nephropathy Respiratory: monitor respiratory rate, CXR Cardiac: continue pressors, continue to monitor HR/BP Renal: F/U I&O, keep IV fluid Infectious Disease: check cultures, continue antibiotics Gastrointestinal: continue feedings/current rate, hold feedings Endocrine: monitor blood sugar, check TSH, continue sliding scale insulin Hematologic: monitor H/H, transfuse if hgb<8.5 Neurologic: PRN Morphine, keep patient comfortable Prophylaxis: Protonix Disposition: transfer to - med/surg Notes Reviewed: cardio, renal Discussed with: nurses, consultants, 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 - Objective Last 24 Hour Vital Signs Date Time Temp Pulse Resp B/P Pulse Ox O2 Delivery O2 Flow Rate FiO2 01/10/17 11:00 62 22 161/69 99 Room Air 01/10/17 10:19 66 147/61 01/10/17 10:00 48 23 147/61 99 Room Air 01/10/17 09:00 53 24 157/67 99 Room Air 01/10/17 08:58 138/62 01/10/17 08:00 97.9 54 19 138/62 99 Room Air 01/10/17 08:00 51 01/10/17 07:33 59 18 Room Air 21 01/10/17 07:00 48 20 134/59 99 Room Air 01/10/17 06:00 52 20 151/64 99 Room Air 01/10/17 05:59 146/69 01/10/17 05:58 146/69 01/10/17 05:00 47 20 146/69 98 Room Air 01/10/17 04:00 49 01/10/17 04:00 98.1 51 22 158/72 98 Room Air 01/10/17 03:00 46 20 156/65 99 Room Air 01/10/17 02:00 51 25 166/73 100 Room Air 01/10/17 01:00 52 26 141/63 99 Room Air 01/10/17 00:00 98.3 52 26 160/67 99 Room Air 01/10/17 00:00 53 01/09/17 23:00 54 20 165/66 99 Room Air 01/09/17 22:00 56 25 143/85 98 Room Air 01/09/17 21:01 178/92 01/09/17 21:01 172/82 8/1/17 21:00 56 27 175/74 99 Room Air 01/09/17 20:29 151/92 01/09/17 20:00 61 01/09/17 20:00 98.6 57 23 151/92 100 Room Air 01/09/17 19:00 56 22 148/75 100 Room Air 01/09/17 19:00 61 18 Room Air 21 01/09/17 18:00 50 22 168/69 98 Room Air 01/09/17 17:00 53 16 158/64 97 Room Air 01/09/17 16:00 98.4 55 19 162/73 98 Room Air 01/09/17 16:00 54 01/09/17 15:00 52 18 152/65 97 Room Air 01/09/17 14:00 57 19 157/70 97 Room Air 01/09/17 13:14 149/81 01/09/17 13:14 149/81 01/09/17 13:00 58 22 149/81 100 Room Air 01/09/17 12:30 54 22 164/77 98 Room Air 01/09/17 12:00 55 01/09/17 12:00 98.3 55 25 159/80 97 Room Air 01/09/17 11:45 57 20 167/83 97 Room Air 01/09/17 11:30 55 26 163/76 98 Room Air Status: awake Condition: critical HEENT: atraumatic Lungs: clear Heart: HR/BP stable, regular Abdomen: soft, active bowel sounds, feeding tube Extremities: edema Decubiti: location Micro: Microbiology Date/Time Source Procedure Growth Status 01/09/17 18:30 Urine,Clean Catch Urine Culture - Preliminary NO GROWTH Resulted Critical Care - Subjective ROS Limited/Unobtainable: No ICU Day: 2 EKG Rhythm: Sinus Rhythm FI02: 21 Sputum Amount: None I&O: Intake and Output 01/09/17 01/10/17 19:00 07:00 Intake Total 698.235 ml 360 ml Output Total 150 ml 250 ml Balance 548.235 ml 110 ml Intake Oral 290 ml 0 ml IV Total 408.235 ml Other 360 ml Output Urine Total 150 ml 250 ml # Voids 1 1 Labs: Laboratory Tests Test 01/09/17 18:30 01/10/17 04:20 Urine Color Yellow Urine Appearance Slightly cloudy Urine pH 5 (4.5-8.0) Urine Specific [place] 1.025 (1.005-1.035) Urine Protein 2+ (NEGATIVE) H Urine Glucose (UA) Negative (NEGATIVE) Urine Ketones 2+ (NEGATIVE) H Urine Occult Blood Negative (NEGATIVE) Urine Nitrite Negative (NEGATIVE) Urine Bilirubin Negative (NEGATIVE) Urine Urobilinogen Normal MG/DL (0.0-1.0) Urine Leukocyte Esterase 3+ (NEGATIVE) H Urine RBC 2-4 /HPF (0 - 2) H Urine WBC 5-10 /HPF (0 - 2) H Urine Squamous Epithelial Cells Few /LPF (NONE/OCC) Urine Amorphous Sediment Few /LPF (NONE) H Urine Bacteria Moderate /HPF (NONE) H White Blood Count 7.4 K/UL (4.8-10.8) Red Blood Count 4.64 M/UL (4.20-5.40) Hemoglobin 12.9 G/DL (12.0-16.0) Hematocrit 40.4 % (37.0-47.0) Mean Corpuscular Volume 87 FL (80-99) Mean Corpuscular Hemoglobin 27.7 PG (27.0-31.0) Mean Corpuscular Hemoglobin Concent 31.8 G/DL (32.0-36.0) L Red Cell Distribution Width 12.2 % (11.6-14.8) Platelet Count 258 K/UL (150-450) Mean Platelet Volume 9.1 FL (6.5-10.1) Neutrophils (%) (Auto) 56.6 % (45.0-75.0) Lymphocytes (%) (Auto) 32.3 % (20.0-45.0) Monocytes (%) (Auto) 8.5 % (1.0-10.0) Eosinophils (%) (Auto) 1.9 % (0.0-3.0) Basophils (%) (Auto) 0.6 % (0.0-2.0) Sodium Level 141 mEQ/L (135-145) Potassium Level 3.8 mEQ/L (3.4-4.9) Chloride Level 105 mEQ/L (98-107) Carbon Dioxide Level 24 mEQ/L (20-30) Anion Gap 12 (5-15) Blood Urea Nitrogen 16 mg/dL (7-23) Creatinine 1.2 mg/dL (0.5-0.9) H Estimat Glomerular Filtration Rate 54.2 mL/min (>60) Glucose Level 191 mg/dL (74-106) H Hemoglobin A1c 9.2 % (< 6.0) H Insulin Level Pending Uric Acid 7.7 mg/dL (3.0-7.5) H Calcium Level 9.6 mg/dL (8.6-10.2) Phosphorus Level 3.0 mg/dL (2.5-4.8) Magnesium Level 1.8 mg/dL (1.7-2.5) Total Bilirubin 0.2 mg/dL (0.0-1.2) Gamma Glutamyl Transpeptidase 14 U/L (5-36) Aspartate Amino Transf (AST/SGOT) 15 U/L (5-40) Alanine Aminotransferase (ALT/SGPT) 10 U/L (3-33) Alkaline Phosphatase 68 U/L (35-104) Total Creatine Kinase 50 U/L (26-140) Troponin I < 0.30 ng/mL (<=0.30) C-Reactive Protein, Quantitative 1.1 mg/dL (< 0.5) H Pro-B-Type Natriuretic Peptide 467 pg/mL (0-125) H Total Protein 6.7 g/dL (6.6-8.7) Albumin 3.7 g/dL (3.5-5.2) Globulin 3.0 g/dL Albumin/Globulin Ratio 1.2 (1.0-2.7) IGLESIA LOPES Jan 10, 2017 11:16
[2017-01-10] MEDS ORDERED: NS 275ml ONE (11:29)
--- NOTE | 2017-01-10 11:45 | Consultation ---
DATE OF CONSULTATION: 01/09/2017 CARDIOLOGY CONSULTATION REFERRING PHYSICIAN: Deborah Hanson M.D. REASON FOR REFERRAL: Hypertension. History Of Present Illness: This is a middle-aged female 66-year-old who presented to the hospital at [facility] because of imbalance. The patient indicated that she was not really feeling good as of last Sunday and Sunday, stayed in bed most of the day, did not even try to eat much, and did not take any of her medications. On Sunday morning, when she went to work, she was off balance 00:38 seek medical attention. She was transferred to the emergency room here at [facility] with systolic blood pressures quite high, therefore this consultation is requested. The patient does not have any chest pain or shortness of breath. There is no PND or orthopnea. She uses one pillow. There is no lightheadedness on standing. There is no heart pounding, palpitations, or dizziness. She describes off balance. No fainting sensation nor is there a spinning sensation that she noticed. PAST MEDICAL HISTORY: Positive for high blood pressure apparently was diagnosed last year when she was undergoing hysterectomy she states and her medications were adjusted by primary care doctor at that time. [facility] records have been evaluated. She does have a history of hypertension, hyperlipidemia, hypothyroidism, and she is status post hysterectomy. The last time there was a progress note from her side show entertainer from March last year, Dr. Easton Starr as a followup of her surgery. There seems to be some indication that the patient may have had some issues previously with compliance with medications for some point in time and there was concern of possibility hypertension, she administered clonidine apparently. She was referred to the proper physicians at that time. ALLERGIES: In either case, these records indicate that the patient has allergies to apples, bananas, walnuts, and Percocet. SOCIAL HISTORY: She denies any smoking, alcohol, or drug use ever. 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 REVIEW OF SYSTEMS: Gastrointestinal: She denies any nausea, vomiting, diarrhea, or constipation. Genitourinary: She denies. Pulmonary: She denies. Constitutional: She had some feeling of cold, no fevers. Neurological: Beside of the fact that she was off balance which apparently resolved after she got to the emergency room, she was able walk back and is otherwise unremarkable. PHYSICAL EXAMINATION: GENERAL: Shows to be an middle-aged female in no respiratory distress. VITAL SIGNS: At the present time, blood pressures were fluctuating between 144/87 to 167/83 on Esmolol drip, heart rates in the 50s. NECK: Supple. No jugular venous distention. LUNGS: Clear to auscultation and percussion. CARDIAC: S1 is normal. S2 is normal. Regular rate and rhythm. Systolic ejection murmur is noted. ABDOMEN: Soft and nontender. Positive bowel sounds. EXTREMITIES: There is no clubbing, cyanosis, or edema. NEUROLOGIC: She is awake, alert, responsive, and in no apparent distress. LABORATORY AND DIAGNOSTIC DATA: Her chest x-ray was performed that showed aortic valve mildly calcified, otherwise unremarkable. Laboratories, white count of 7.1, hemoglobin 13.9, and platelet count 295,000. Sodium is 140, potassium 3.5, chloride 98, bicarbonate 27, BUN 13, creatinine 1.2, and glucose of 142. Calcium is 10.1. Two sets of cardiac enzymes are negative. CRP was negative. Cholesterol was 290 with an LDL of 222. TSH is 2.02. INR is 1.0 and a PTT of 26. Her telemetry data so far shows sinus rhythm and sinus bradycardia. Echocardiogram has been performed, mild to moderate tricuspid regurgitation, PA pressure of 46, ejection fraction is estimated at 55%. EKG shows normal sinus rhythm, normal echo shows mild left ventricular hypertrophy is evident. ASSESSMENT AND PLAN: 1. Hypertensive encephalopathy. 2. Hypertension. 3. Hyperlipidemia. 4. Medication noncompliance. 5. Percocet allergy. 6. Hypothyroidism. Dr. Hanson, this patient was seen in cardiac consultation. The patient has been previously on clonidine. She indicates she has missed probably a couple of days of her clonidine which was 0.1 mg twice a day that she was receiving. She may have a rebound effect from the clonidine. I would recommend discontinuation of esmolol drip and administration of clonidine 0.1 mg three times daily. Continue the amlodipine at 10 mg daily and she has been on Zestoretic 20/12.5 mg on her prior medications. She is also on Synthroid 50 mcg to be restarted. I will continue her on the lisinopril, dose may need to be increased and clonidine was resumed hopefully to get a blood pressure control. An echocardiogram that shows some degree of pulmonary hypertension, workup of that will be left to you. Otherwise, I follow the patient along with you. Zach Reynoso M.D. DR: BREONNA JOB#: [id number] CC:
--- NOTE | 2017-01-10 16:10 | Cardiology Report ---
APPROVED REPORT EKG Measurement Heart [id number] Sinus bradycardia Minimal voltage criteria for LVH, may be normal variant Abnormal ECG
--- NOTE | 2017-01-10 16:25 | Cardiology Report ---
APPROVED REPORT EKG Measurement Heart [id number] Sinus rhythm with 1st degree AV block Possible Left atrial enlargement Abnormal ECG
[2017-01-10] MEDS ORDERED: Nitroglycerin Subl 0.4mg tab (Bottle Of 25) SL PRN (18:00)
[2017-01-10] MEDS ORDERED: DuoNeb 0.5-3(2.5)mg/3ml neb HHN PRN (18:30)
[2017-01-10] MEDS ORDERED: Miralax 17gm pkt ORAL PRN (19:00)
--- NOTE | 2017-01-10 20:21 | Cardiology Progress Note ---
Assessment/Plan Assessment/Plan hytensive encphaloapthy hyperlipidemia med noncomplaince hypothryoid med wer adjsuted by dr garcía bp is better to day family at bedside feel pt is speaking differently than usual will order mri consider neuro evaluation labs ok d/w family at bedside Subjective Cardiovascular: Denies: chest pain, lightheadedness Respiratory: Denies: SOB with excertion Gastrointestinal/Abdominal: Denies: abdominal pain Genitourinary: Denies: burning Objective Last 24 Hour Vital Signs Date Time Temp Pulse Resp B/P Pulse Ox O2 Delivery O2 Flow Rate FiO2 01/10/17 18:44 98.1 60 19 150/77 99 Room Air 01/10/17 17:00 64 20 138/61 99 Room Air 01/10/17 16:00 68 01/10/17 16:00 98.0 61 19 159/64 99 Room Air 01/10/17 15:00 54 20 146/61 99 Room Air 01/10/17 14:00 62 21 163/67 99 Room Air 01/10/17 14:00 146/73 01/10/17 13:00 49 22 146/73 99 Room Air 01/10/17 12:00 98.0 52 20 159/68 99 Room Air 01/10/17 12:00 48 01/10/17 11:00 62 22 161/69 99 Room Air 01/10/17 10:19 66 147/61 01/10/17 10:00 48 23 147/61 99 Room Air 01/10/17 09:00 53 24 157/67 99 Room Air 01/10/17 08:58 138/62 01/10/17 08:00 97.9 54 19 138/62 99 Room Air 01/10/17 08:00 51 01/10/17 07:33 59 18 Room Air 21 01/10/17 07:00 48 20 134/59 99 Room Air 01/10/17 06:00 52 20 151/64 99 Room Air 01/10/17 05:59 146/69 01/10/17 05:58 146/69 01/10/17 05:00 47 20 146/69 98 Room Air 01/10/17 04:00 49 01/10/17 04:00 98.1 51 22 158/72 98 Room Air 01/10/17 03:00 46 20 156/65 99 Room Air 01/10/17 02:00 51 25 166/73 100 Room Air 01/10/17 01:00 52 26 141/63 99 Room Air 01/10/17 00:00 98.3 52 26 160/67 99 Room Air 01/10/17 00:00 53 01/09/17 23:00 54 20 165/66 99 Room Air 01/09/17 22:00 56 25 143/85 98 Room Air 01/09/17 21:01 178/92 01/09/17 21:01 172/82 01/09/17 21:00 56 27 175/74 99 Room Air 01/09/17 20:29 151/92 General Appearance: no apparent distress, alert Rhythm: NSR Cardiovascular: normal rate, regular rhythm Respiratory/Chest: lungs clear, normal breath sounds Abdomen: non tender, soft Extremities: non-tender, no swelling Intake and Output 01/09/17 01/10/17 19:00 07:00 Intake Total 698.235 ml 360 ml Output Total 150 ml 250 ml Balance 548.235 ml 110 ml Intake Oral 290 ml 0 ml IV Total 408.235 ml Other 360 ml Output Urine Total 150 ml 250 ml # Voids 1 1 Laboratory Tests Test 01/10/17 04:20 White Blood Count 7.4 K/UL (4.8-10.8) Red Blood Count 4.64 M/UL (4.20-5.40) Hemoglobin 12.9 G/DL (12.0-16.0) Hematocrit 40.4 % (37.0-47.0) Mean Corpuscular Volume 87 FL (80-99) Mean Corpuscular Hemoglobin 27.7 PG (27.0-31.0) Mean Corpuscular Hemoglobin Concent 31.8 G/DL (32.0-36.0) L Red Cell Distribution Width 12.2 % (11.6-14.8) Platelet Count 258 K/UL (150-450) Mean Platelet Volume 9.1 FL (6.5-10.1) Neutrophils (%) (Auto) 56.6 % (45.0-75.0) Lymphocytes (%) (Auto) 32.3 % (20.0-45.0) Monocytes (%) (Auto) 8.5 % (1.0-10.0) Eosinophils (%) (Auto) 1.9 % (0.0-3.0) Basophils (%) (Auto) 0.6 % (0.0-2.0) Sodium Level 141 mEQ/L (135-145) Potassium Level 3.8 mEQ/L (3.4-4.9) Chloride Level 105 mEQ/L (98-107) Carbon Dioxide Level 24 mEQ/L (20-30) Anion Gap 12 (5-15) Blood Urea Nitrogen 16 mg/dL (7-23) Creatinine 1.2 mg/dL (0.5-0.9) H Estimat Glomerular Filtration Rate 54.2 mL/min (>60) Glucose Level 191 mg/dL (74-106) H Hemoglobin A1c 9.2 % (< 6.0) H Insulin Level Pending Uric Acid 7.7 mg/dL (3.0-7.5) H Calcium Level 9.6 mg/dL (8.6-10.2) Phosphorus Level 3.0 mg/dL (2.5-4.8) Magnesium Level 1.8 mg/dL (1.7-2.5) Total Bilirubin 0.2 mg/dL (0.0-1.2) Gamma Glutamyl Transpeptidase 14 U/L (5-36) Aspartate Amino Transf (AST/SGOT) 15 U/L (5-40) Alanine Aminotransferase (ALT/SGPT) 10 U/L (3-33) Alkaline Phosphatase 68 U/L (35-104) Total Creatine Kinase 50 U/L (26-140) Troponin I < 0.30 ng/mL (<=0.30) C-Reactive Protein, Quantitative 1.1 mg/dL (< 0.5) H Pro-B-Type Natriuretic Peptide 467 pg/mL (0-125) H Total Protein 6.7 g/dL (6.6-8.7) Albumin 3.7 g/dL (3.5-5.2) Globulin 3.0 g/dL Albumin/Globulin Ratio 1.2 (1.0-2.7) Microbiology Date/Time Source Procedure Growth Status 01/09/17 18:30 Urine,Clean Catch Urine Culture - Preliminary NO GROWTH Resulted JESUS ROE Jan 10, 2017 20:21
[2017-01-10] MEDS: Atorvastatin 20mg tab ORAL SCH (20:39)
[2017-01-11] VITALS (8 sets, daily range): BP systolic 136–196; BP diastolic 72–90
[2017-01-11] MEDS: HydrALAZINE 50mg tab ORAL SCH ×3 (06:15→21:35)
[2017-01-11] MEDS: Lisinopril 20mg tab ORAL SCH ×2 (10:43→21:36)
--- NOTE | 2017-01-11 10:52 | Diagnostic Imaging Report ---
Indication: Acute CVA. Acute onset dizziness and imbalance Technique: The head was imaged in a 1.5 Maria Eugenia magnet. Sequences obtained include sagittal and axial T1 FLAIR, axial T2 fast spin echo with fat saturation, axial T2 FLAIR, diffusion and ADC map. Comparison: None There is an approximately 4 x 2 cm focus of diffusion restriction (as measured on transaxial images) involving the left cerebellum extending into the left brachium pontis consistent with acute CVA. Some associated mild T1 hypointense/T2 hyperintense edema noted on other sequences. There is no associated susceptibility. No evidence of acute hemorrhage although would obtain followup noncontrast CT. There is no significant mass effect on the fourth ventricle which appears midline. In addition there are punctate 2-3 mm foci of diffusion restriction involving the left parietal white matter/boothe radiata (image 16, series 3), punctate focus left insular cortex (image 14 series 3), questionable right posterior thalamic focus image 14, series 3, punctate peripheral right posterior parietal cortex image 16 series 3. The presence of these other small diffusion restriction foci suggest possibility of embolic phenomena. Please correlate clinically. Patchy with areas of cystic foci noted in the left caudate, left external capsule, right, left thalamus consistent with old small vessel infarcts. Patchy white matter T2 hyperintensity also noted throughout the boothe radiata/centrum semiovale and deep white matter regions probably on the basis of chronic small vessel disease given the patient's age. T2 * gradient echo sequence demonstrates multiple low signal intensity foci involving portions of the paravermian cerebellum, brainstem, bilateral thalami. The findings are nonspecific but probably due to hemosiderin. These may be related to chronic hypertension. The corpus callosum, sella, osseous bone marrow signal and normal. Impression: 4 x 2 cm acute nonhemorrhagic CVA in the left cerebellum/brachium pontis. Additional 2-3 mm foci of acute CVA involving different vascular territories within the cerebrum bilaterally. Further workup for embolic phenomena should be considered (e.g. atrial fibrillation). Evidence of chronic small vessel disease including multiple old small vessel infarcts involving the thalami and basal ganglia bilaterally. Nonspecific, multiple low signal intensity foci of magnetic susceptibility probably related to chronic hypertension, although there is a differential diagnosis. Critical value communication. Findings were conveyed to Dr. Hanson by text at 10 AM, 01/11/17 and communicated verbally to the nurse on 2 E..
[2017-01-11] MEDS: Heparin 5000 units/ml inj SUBQ SCH ×2 (11:48→21:36)
--- NOTE | 2017-01-11 13:28 | Neurology Progress Note ---
Interim History Interim History ROS Limited/Unobtainable: No Objective Physical Exam Last Vital Signs Date Time Temp Pulse Resp B/P Pulse Ox O2 Delivery O2 Flow Rate FiO2 01/11/17 12:00 97.9 68 18 156/79 97 Room Air 01/10/17 07:33 21 Impression/Recommendations Problems: (1) Acute ischemic strokes in L FORENSIC TOXICOLOGIST/MCA c/w embolism (2) extensive hypertensive angiopathy, multiple old strokes (3) Hypertensive emergency, no CHF Status: unchanged Recommendations # [id number] CARLOS CT angio brain neck coag panel asa/statins MAXX NAJERA Jan 11, 2017 13:28
--- NOTE | 2017-01-11 13:53 | Pulmonology Progress Note ---
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 (3) Acute encephalopathy (4) Hypertensive emergency, no CHF Assessment/Plan MRI noted pt/ot dc planning to rehab f/u cardio and neuro Subjective ROS Limited/Unobtainable: No Constitutional: Reports: no symptoms HEENT: Repors: no symptoms Respiratory: Reports: no symptoms Allergies: Coded Allergies: ACETAMINOPHEN (Unverified Allergy, Unknown, 01/08/17) OXYCODONE (Unverified Allergy, Unknown, 01/08/17) Objective Last 24 Hour Vital Signs Date Time Temp Pulse Resp B/P Pulse Ox O2 Delivery O2 Flow Rate FiO2 01/11/17 12:00 97.9 68 18 156/79 97 Room Air 01/11/17 10:45 69 136/79 01/11/17 10:43 136/79 01/11/17 09:04 Room Air 01/11/17 08:00 98.2 69 18 136/79 98 Room Air 01/11/17 06:15 119/58 01/11/17 04:00 66 01/11/17 04:00 98.1 70 18 151/79 99 Room Air 01/11/17 00:00 99.0 69 18 140/72 96 Room Air 01/11/17 00:00 69 01/10/17 22:15 149/72 01/10/17 20:38 159/79 01/10/17 20:33 60 18 Room Air 01/10/17 20:00 60 01/10/17 20:00 97.7 60 20 141/71 97 Room Air 01/10/17 18:44 98.1 60 19 150/77 99 Room Air 01/10/17 17:00 64 20 138/61 99 Room Air 01/10/17 16:00 68 01/10/17 16:00 98.0 61 19 159/64 99 Room Air 01/10/17 15:00 54 20 146/61 99 Room Air 01/10/17 14:00 62 21 163/67 99 Room Air 01/10/17 14:00 146/73 Intake and Output 01/10/17 01/11/17 19:00 07:00 Intake Total 120 ml Output Total 350 ml Balance -230 ml Other 120 ml Output Urine Total 350 ml # Voids 3 General Appearance: WD/WN HEENT: normocephalic Respiratory/Chest: chest wall non-tender, lungs clear Breasts: no masses Cardiovascular: normal peripheral pulses Abdomen: normal bowel sounds, soft, non tender Genitourinary: normal external genitalia Extremities: no clubbing Microbiology Date/Time Source Procedure Growth Status 01/08/17 20:00 Nasal Nares MRSA Culture - Final NO METHICILLIN RESISTANT STAPH AUREUS... Complete 01/09/17 18:30 Urine,Clean Catch Urine Culture - Preliminary Resulted 01/08/17 20:00 Rectum VRE Culture - Final NO VANCOMYCIN RESISTANT ENTEROCOCCUS ... Complete Current Medications Medications (Trade) Dose Ordered Sig/Melanie Route PRN Reason Start Time Stop Time Status Last Admin Dose Admin Albuterol/ Ipratropium (DuoNeb 0.5-3(2.5)mg/3ml) 3 ml Q4H PRN HHN Shortness of Breath 01/10/17 18:30 01/15/17 18:29 Aspirin (ASA) 81 mg DAILY ORAL 01/11/17 14:00 02/10/17 13:59 Atorvastatin Calcium (Lipitor) 20 mg BEDTIME ORAL 01/10/17 21:00 02/09/17 20:59 01/10/17 20:39 Clonidine HCl (Catapres) 0.1 mg Q4H PRN ORAL bp over 160 syst 01/10/17 18:30 02/09/17 18:29 Clopidogrel Bisulfate (Plavix) 75 mg DAILY ORAL 01/11/17 14:00 02/10/17 13:59 Heparin Sodium (Porcine) (Heparin 5000 units/ml) 5,000 units EVERY 12 HOURS SUBQ 01/10/17 21:00 02/09/17 20:59 01/11/17 11:48 Hydralazine HCl (Apresoline) 10 mg Q4H PRN IV sbp more than 170 01/10/17 18:00 02/09/17 17:59 Hydralazine HCl (Apresoline) 50 mg Q8HR ORAL 01/10/17 22:00 02/09/17 21:59 01/11/17 06:15 Levothyroxine Sodium (Synthroid) 50 mcg DAILY@0630 ORAL 01/11/17 06:30 02/10/17 06:29 01/11/17 06:14 Lisinopril (Prinivil) 20 mg EVERY 12 HOURS ORAL 01/10/17 21:00 02/09/17 20:59 01/11/17 10:43 Nifedipine (Procardia XL) 60 mg DAILY ORAL 01/11/17 09:00 02/10/17 08:59 01/11/17 10:45 Nitroglycerin (Ntg) 0.4 mg Every 5 Minutes PRN SL Prn Chest Pain 01/10/17 18:00 02/09/17 17:59 Ondansetron HCl (Zofran) 4 mg Q6H PRN IVP Nausea & Vomiting 01/10/17 18:30 02/09/17 18:29 Pantoprazole (Protonix) 40 mg DAILY ORAL 01/11/17 09:00 02/10/17 08:59 01/11/17 10:43 Polyethylene Glycol (Miralax) 17 gm DAILYPRN PRN ORAL Constipation 01/10/17 19:00 02/09/17 18:59 Temazepam (Restoril) 15 mg HSPRN PRN ORAL Insomnia 01/10/17 19:00 01/17/17 18:59 IGLESIA LOPES Jan 11, 2017 13:53
--- NOTE | 2017-01-11 14:06 | General Progress Note ---
Assessment/Plan Status: stable Assessment/Plan Status; (1) Acute encephalopathy resolved (2) Hypertensive emergency resolved (3) Hypo Thyroidism (4) High Cholestrol Plan; BP controlled Monitor renal parameters Avoid nephrotoxics Per orders Subjective ROS Limited/Unobtainable: No Allergies: Coded Allergies: ACETAMINOPHEN (Unverified Allergy, Unknown, 01/08/17) OXYCODONE (Unverified Allergy, Unknown, 01/08/17) Objective Last 24 Hour Vital Signs Date Time Temp Pulse Resp B/P Pulse Ox O2 Delivery O2 Flow Rate FiO2 01/11/17 12:00 97.9 68 18 156/79 97 Room Air 01/11/17 10:45 69 136/79 01/11/17 10:43 136/79 01/11/17 09:04 Room Air 01/11/17 08:00 98.2 69 18 136/79 98 Room Air 01/11/17 06:15 119/58 01/11/17 04:00 66 01/11/17 04:00 98.1 70 18 151/79 99 Room Air 01/11/17 00:00 99.0 69 18 140/72 96 Room Air 01/11/17 00:00 69 01/10/17 22:15 149/72 01/10/17 20:38 159/79 01/10/17 20:33 60 18 Room Air 01/10/17 20:00 60 01/10/17 20:00 97.7 60 20 141/71 97 Room Air 01/10/17 18:44 98.1 60 19 150/77 99 Room Air 01/10/17 17:00 64 20 138/61 99 Room Air 01/10/17 16:00 68 01/10/17 16:00 98.0 61 19 159/64 99 Room Air 01/10/17 15:00 54 20 146/61 99 Room Air Intake and Output 01/10/17 01/11/17 19:00 07:00 Intake Total 120 ml Output Total 350 ml Balance -230 ml Other 120 ml Output Urine Total 350 ml # Voids 3 Height (Feet): 5 Height (Inches): 9.00 Weight (Pounds): 170 General Appearance: no apparent distress Objective PE not changed SNOG PEREA Jan 11, 2017 14:06
[2017-01-11] MEDS: Aspirin Baby 81mg ORAL SCH (15:30)
--- NOTE | 2017-01-11 20:15 | Consultation ---
DATE OF CONSULTATION: 01/11/2017 NEUROLOGICAL CONSULTATION REQEUESTING PHYSICIAN: Deborah Hanson M.D. PRIMARY CARE PHYSICIAN: Yolis Moreno M.D. ([facility] – [place]). HISTORY OF PRESENT ILLNESS: This is a 66-year-old female seen in neurological consultation to evaluate presence of acute stroke. The patient informed me that a couple days prior to admission, she was not feeling well, stated that took her medication and on Sunday she went to work, was doing fairly well and while walking she had a very sudden onset being off balance, she would fall mainly to the right side so she had to hold onto wall. She complained to her superiors. She was then sent to [facility] were she was found to have blood pressure out of control and EKG abnormalities. The patient was complaining dizzy, otherwise asymptomatic. The patient also reported that in the three last days she was not taking her usual treatment with Norvasc and lisinopril because she did not feel well. The patient was transported to this facility for further assessment and treatment. Her blood pressure on admission 247/123, heart rate 68, afebrile, pulse oximetry 99%. She was described as normal neurological examination. The patient was started on esmolol after having bolus. Her EKG showed normal sinus rhythm, first-degree AV block noted, no PVC, no ectopy. Laboratory studies included CBC study with RBC 5.29, hematocrit 37.4. Normal coagulation panel. Urinalysis 5 to 10 WBCs, 2+ ketones and 2+ protein. Chemistry panel remarkable for creatinine 1.2. Glucose 142. Repeat studies revealed elevated hemoglobin A1c of 9.2. Blood sugar 191. Uric acid 7.7. BNP of 467. Normal troponins. Cholesterol high at 290 with LDL of 222. Normal TSH. Imaging studies included chest x-ray reveals mildly calcific aortic arch, otherwise negative portable AP chest x-ray. A 2D echocardiogram revealed no evidence of mural thrombi. While at the hospital, the patient developed slurring of the speech. MRI of the brain without contrast was obtained this morning, this revealed approximately 4 x 2 centimeter focus of diffusion restriction, left cerebellum extending to the left brachium pontis which is consistent with acute ischemic stroke. There is no evidence of bleeding. There is a punctate 2 to 3 mm foci of diffusion restriction left parietal white matter and boothe radiata, left inferior cortex, questionable right posterior thalamic focus, and punctate peripheral right posterior parietal cortex, she is suspected to have embolic phenomena. There is external capsule, right and left thalamus consistent with old small vessel infarcts, patchy white matter hyperintensities are noted throughout the boothe radiata centrum semiovale, deep white matter on the basis of chronic small vessel disease given the patient's age, with several gradient echo sequence of signal intensity foci in the cerebellum brainstem thalami, nonspecific but probably due to deposit of hemosiderin and may be related to chronic hypertension. At this point, stat neurology consult was requested. PAST MEDICAL HISTORY: The patient has a long history of hypertension, poorly controlled. She recalled that five years ago she had acute stroke which affected the right eye vision. The patient is unaware of other medical issues. She is maintained on antihypertensive medications but no antiplatelets. She has a history of hypothyroidism. MEDICATIONS: Treatment prior to admission included amlodipine and lisinopril. ALLERGIES: She reports Percocet allergy as well as allergies to apples, bananas, walnuts. SOCIAL HISTORY: She is , lives alone: No alcohol. No drug abuse. Nonsmoker. Works as [employer]. Not engaged in sport activities. FAMILY HISTORY: Noncontributory. REVIEW OF SYSTEMS: The patient indicated currently she is feeling fairly well but then added that she had some slurring of speech, clumsiness in her both arms but predominantly on the left. She denies any swallowing difficulties, any changes in her visual or hearing. No urine or bowel incontinence. Right eye stroke 5 years ago. PHYSICAL EXAMINATION: GENERAL: The patient is well-developed and well-nourished pleasant lady, not in acute distress. VITAL SIGNS: Her vital signs reveals systolic blood pressure now in 160s to 170s with sinus bradycardia rate of 50 to 60. Afebrile. HEENT: Head, normocephalic. No evidence of trauma. Eyes, ears, and throat are clear. NECK: Supple. No meningeal signs. MUSCULOSKELETAL: Unremarkable. There is no deformities. Peripheral pulses 1+ and symmetric. MENTAL STATUS: The patient is alert and oriented x3. Speech is fluent. Language is intact. There is no aphasia. There is no apraxia. Cognitive function normal. CRANIAL NERVE II: Pupils both responding to light and accommodation. Extraocular movement intact. No nystagmus. CRANIAL NERVE V: Normal corneal responses. Visual elizabeth are full on confrontation CRANIAL NERVE VII: Minor facial asymmetry. CRANIAL NERVE VIII: Slight decrease in hearing. CRANIAL NERVES IX THROUGH XII: Tongue is in midline. Symmetric palate elevation. MOTOR EXAMINATION: Revealed slight decrease in strength, pronation drift left upper and left lower extremity. Clumsiness on [id number] and wfcl-wv-ormm testing predominantly on the left side. Deep tendon reflexes 1+ symmetric, plantar responses flexor. Sensory examination, normal to pin stimulation both upper and lower extremities. Gait not tested. IMPRESSION: 1. Acute ischemic left posterior cerebral artery and left middle cerebral artery distribution strokes predominantly in the left cerebellar pontine area presenting with briana ataxia, dysarthria, minor left hemiparesis. 2. HYPERTENSIVE ENCEPHALOPATHY: 3. Medication noncompliance. 4. Hyperlipidemia. 5. Hypothyroidism. 6. Rule out diabetes mellitus. 7. Extensive ischemic cerebrovascular disease probably hypertensive angiopathy with the multiple disseminated lacunar strokes, old. DISCUSSION: The patient developed hypertensive urgency and signs of acute left hemiataxia progressed further with dysarthria. MRI findings demonstrating a preexistent significant cerebrovascular disease probably related to poorly controlled hypertensive angiopathy now with ischemic strokes in anterior and posterior circulation, strongly suggestive of cardiac embolism. Further diagnostic study will be necessary to identify source of embolism. A 2D echo with bubble study but presumably transesophageal echocardiogram would be helpful. We will get coagulation panel, venous duplex lower extremities, and get angio of the neck and head. The patient will be placed on aspirin/Plavix/statins: We will maintain systolic blood pressure ranging 130 to 160. Tightly control blood sugar. We will obtain PT/OT assessment, speech therapy assessment, anticoagulation will be necessary when acuteness of the stroke resolving. We will follow with you. Thank you for allowing me to see this interesting patient in neurological consultation. Joo Puckett M.D. DR: Ita JOB#: [id number] CC:
[2017-01-11] MEDS: Atorvastatin 20mg tab ORAL SCH (21:34)
[2017-01-12 03:55] VITALS: BP 161/82
[2017-01-12] MEDS: HydrALAZINE 50mg tab ORAL SCH ×3 (06:12→21:43)
[2017-01-12 08:00] VITALS: BP 155/74
[2017-01-12] MEDS: Heparin 5000 units/ml inj SUBQ SCH ×2 (09:00→20:18)
[2017-01-12] MEDS: Lisinopril 20mg tab ORAL SCH ×2 (09:23→20:15)
[2017-01-12] MEDS: Metoprolol Tartrate 12.5mg TAB ORAL SCH ×2 (09:23→20:14)
[2017-01-12] MEDS: Aspirin Baby 81mg ORAL SCH (09:24)
[2017-01-12 12:00] VITALS: BP 125/80
--- NOTE | 2017-01-12 12:00 | General Progress Note ---
Assessment/Plan Status: doing well Status Narrative BP stable Assessment/Plan Status; (1) Acute encephalopathy resolved, has CVA (2) Hypertensive emergency resolved (3) Hypo Thyroidism (4) High Cholestrol Plan; BP controlled Monitor renal parameters Avoid nephrotoxics- Per neuro Per orders Subjective ROS Limited/Unobtainable: No Constitutional: Reports: other - stronger- Neurologic/Psychiatric: Reports: other - speech improved Allergies: Coded Allergies: ACETAMINOPHEN (Unverified Allergy, Unknown, 01/08/17) OXYCODONE (Unverified Allergy, Unknown, 01/08/17) Objective Last 24 Hour Vital Signs Date Time Temp Pulse Resp B/P Pulse Ox O2 Delivery O2 Flow Rate FiO2 01/12/17 09:24 78 155/74 01/12/17 09:23 78 155/74 01/12/17 09:23 155/74 01/12/17 08:00 97.8 78 20 155/74 97 Room Air 01/12/17 07:35 70 01/12/17 06:12 177/81 01/12/17 03:55 97.9 79 20 161/82 99 79 01/11/17 23:49 97.7 74 20 145/72 97 Room Air 74 01/11/17 21:36 145/64 01/11/17 21:35 145/64 01/11/17 20:16 97.7 82 20 178/85 97 82 01/11/17 19:00 65 18 Room Air 01/11/17 16:34 80 158/90 01/11/17 16:00 98.1 84 18 196/83 98 Room Air 01/11/17 15:40 82 01/11/17 15:30 156/79 01/11/17 12:00 97.9 68 18 156/79 97 Room Air Intake and Output 01/11/17 01/12/17 19:00 07:00 Intake Total 1000 ml Balance 1000 ml Intake Oral 1000 ml # Voids 2 4 Height (Feet): 5 Height (Inches): 9.00 Weight (Pounds): 166 Objective PE not changed SONG PEREA Jan 12, 2017 12:00
--- NOTE | 2017-01-12 12:02 | Neurology Progress Note ---
Interim History Interim History ROS Limited/Unobtainable: No Complaints: none Events: stable Objective Physical Exam Last Vital Signs Date Time Temp Pulse Resp B/P Pulse Ox O2 Delivery O2 Flow Rate FiO2 01/12/17 09:24 78 155/74 01/12/17 08:00 97.8 20 97 Room Air 01/10/17 07:33 21 General: well developed, well nourished, no acute distress Head: normocophalic, atraumatic Neck: no rigidity Neurologic Exam Mental Status: awake, alert, oriented x4, normal cognition, good mathematical skills, normal recent memory, normal remote memory, preserved visuospatial function Speech: normal speech, no dysarthia Language: normal language, no aphasia Cranial Nerve II: fundus normal, visual elizabeth, no papilledema Cranial Nerves III, IV, : PERRLA, EOMI, pupils Cranial Nerve V: normal facial sensations, masseters function normal Cranial Nerve VII: normal facial expressions Cranial Nerve VIII: no nystagmus Cranial Nerve IX: normal palate elevation, gag response Cranial Nerve X: no voice hoarseness Cranial Nerve XI: SCM symmetric, trapezii function normal Cranial Nerve XII: tongue midline, no tongue atrophy/fasciculations Motor System: normal muscle tone, strength 5/5, no involuntary movement, no muscle wasting Sensory: normal pinprick Coordination: other - clumsy L side slightly Deep Tendon Reflexes: 0 ankle (L), 0 ankle (R), 0 bicep (L), 0 bicep (R), 0 brachioradialis (L), 0 brachioradialis (R), 0 knee (L), 0 knee (R), 0 tricep (L) , 0 tricep (R) Reflexes: mute plantar (L), mute plantar (R) Impression/Recommendations Problems: (1) 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
--- NOTE | 2017-01-12 12:30 | Diagnostic Imaging Report ---
APPROVED REPORT CPT Code: 23508 Vascular Symptoms Dizziness and Vertigo Unsteady Gait Comments: Brain MRI 01/11/2017 reveals acute, non-hemorrhagic CVA of left cerebellum/brachium pontis measuring 4 cm x 2 cm. Doppler Spectral Velocity Analysis RightLeft dICA50/15 cm/sdICA40/13 cm/s mICA47/13 cm/smICA46/13 cm/s pICA57/14 cm/spICA47/13 cm/s HRT680/15 cm/zZBU485/18 cm/s dCCA58/11 cm/sdCCA81/13 cm/s mCCA55/10 cm/smCCA89/14 cm/s pCCA55/9 cm/spCCA67/10 cm/s Vert.42/11 cm/sVert.47/9 cm/s Right ICA/CCA ratio1.0Left ICA/CCA ratio0.5 carotid bulb/proximal internal carotid artery. The Doppler spectral flow analysis indicates the degree of stenosis is mild (40%-50%). Note: CCA measured velocities are significant plaque in the common, internal and external carotid arteries. VERTEBRAL - The vertebral artery is patent, without evidence of stenosis or steal. internal carotid arteries. The Doppler spectral flow analysis is within normal limits throughout the extracranial carotid arteries. VERTEBRAL - The vertebral artery is patent, without evidence of stenosis or steal.
--- NOTE | 2017-01-12 13:02 | Cardiology Progress Note ---
Assessment/Plan Assessment/Plan hypertensive encephalopathy cva ? embolic hyperlipidemia med noncompliance hypothyroid med wer adjsuted by dr garcía bp is at tiem elevated will incerse nifedipine per speech is better mri noted d/w neuro need embolic oliveira cannot start anticoagulation for 2 week labs ok d/w family at bedside will do bubble study hre holter not avialbel here may need hotler or ziopatch as outpt will need miguel can do next week here or as out pt dependign on pt preference tele strips reviewed here no afib documented on any of the strip d/w dr garcía Subjective Cardiovascular: Denies: chest pain, lightheadedness, palpitations Respiratory: Denies: shortness of breath Gastrointestinal/Abdominal: Denies: abdominal pain Genitourinary: Denies: burning Objective Last 24 Hour Vital Signs Date Time Temp Pulse Resp B/P Pulse Ox O2 Delivery O2 Flow Rate FiO2 01/12/17 12:08 175/88 01/12/17 12:00 97.7 100 21 125/80 100 Room Air 01/12/17 09:24 78 155/74 01/12/17 09:23 78 155/74 01/12/17 09:23 155/74 01/12/17 08:00 97.8 78 20 155/74 97 Room Air 01/12/17 07:35 70 01/12/17 06:12 177/81 01/12/17 03:55 97.9 79 20 161/82 99 79 01/11/17 23:49 97.7 74 20 145/72 97 Room Air 74 01/11/17 21:36 145/64 01/11/17 21:35 145/64 01/11/17 20:16 97.7 82 20 178/85 97 82 01/11/17 19:00 65 18 Room Air 01/11/17 16:34 80 158/90 01/11/17 16:00 98.1 84 18 196/83 98 Room Air 01/11/17 15:40 82 01/11/17 15:30 156/79 General Appearance: no apparent distress Neck: supple Cardiovascular: normal rate, regular rhythm Respiratory/Chest: lungs clear, normal breath sounds Abdomen: normal bowel sounds, non tender, soft Extremities: no swelling Intake and Output 01/11/17 01/12/17 19:00 07:00 Intake Total 1000 ml Balance 1000 ml Intake Oral 1000 ml # Voids 2 4 Microbiology Date/Time Source Procedure Growth Status 01/09/17 18:30 Urine,Clean Catch Urine Culture - Final Mixed Gram Positive Organism Complete JESUS ROE Jan 12, 2017 13:02
[2017-01-12] MEDS ORDERED: D5W 275ml ONE (15:41)
[2017-01-12 16:00] VITALS: BP 170/87
[2017-01-12] MEDS ORDERED: SYNTHROID50 MCG ORAL (17:38)
[2017-01-12] MEDS ORDERED: LISINOPRIL20 MG ORAL (17:38)
[2017-01-12] MEDS ORDERED: PROCARDIA XL30 MG ORAL (17:38)
[2017-01-12] MEDS ORDERED: PLAVIX75 MG ORAL (17:38)
[2017-01-12] MEDS ORDERED: LOPRESSOR25 M1 ORAL (17:38)
[2017-01-12] MEDS ORDERED: APRESOLINE50 MG ORAL (17:38)
[2017-01-12] MEDS ORDERED: LIPITOR20 MG ORAL (17:38)
[2017-01-12] MEDS ORDERED: ASPIRIN81 MG ORAL (17:38)
--- NOTE | 2017-01-12 18:13 | Pulmonology Progress Note ---
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 (3) Acute encephalopathy (4) Hypertensive emergency, no CHF Assessment/Plan all noted bp controlled will need rehab pt/ot dc planning to rehab f/u cardio and neuro outpatient CARLOS Subjective ROS Limited/Unobtainable: No Constitutional: Reports: no symptoms HEENT: Repors: no symptoms Respiratory: Reports: no symptoms, wheezing Allergies: Coded Allergies: ACETAMINOPHEN (Unverified Allergy, Unknown, 01/08/17) OXYCODONE (Unverified Allergy, Unknown, 01/08/17) Objective Last 24 Hour Vital Signs Date Time Temp Pulse Resp B/P Pulse Ox O2 Delivery O2 Flow Rate FiO2 01/12/17 16:00 97.8 67 21 170/87 96 Room Air 01/12/17 15:01 194/92 01/12/17 12:08 175/88 01/12/17 12:00 97.7 100 21 125/80 100 Room Air 01/12/17 09:24 78 155/74 01/12/17 09:23 78 155/74 01/12/17 09:23 155/74 01/12/17 08:00 97.8 78 20 155/74 97 Room Air 01/12/17 07:35 70 01/12/17 06:12 177/81 01/12/17 03:55 97.9 79 20 161/82 99 79 01/11/17 23:49 97.7 74 20 145/72 97 Room Air 74 01/11/17 21:36 145/64 01/11/17 21:35 145/64 01/11/17 20:16 97.7 82 20 178/85 97 82 01/11/17 19:00 65 18 Room Air Intake and Output 01/11/17 01/12/17 19:00 07:00 Intake Total 1000 ml Balance 1000 ml Intake Oral 1000 ml # Voids 2 4 General Appearance: WD/WN HEENT: normocephalic, atraumatic Respiratory/Chest: chest wall non-tender, lungs clear Breasts: no masses Cardiovascular: normal peripheral pulses Abdomen: normal bowel sounds, soft, non tender Genitourinary: normal external genitalia Extremities: no cyanosis Microbiology Date/Time Source Procedure Growth Status 01/09/17 18:30 Urine,Clean Catch Urine Culture - Final Mixed Gram Positive Organism Complete Current Medications Medications (Trade) Dose Ordered Sig/Melanie Route PRN Reason Start Time Stop Time Status Last Admin Dose Admin Albuterol/ Ipratropium (DuoNeb 0.5-3(2.5)mg/3ml) 3 ml Q4H PRN HHN Shortness of Breath 01/10/17 18:30 01/15/17 18:29 Aspirin (ASA) 81 mg DAILY ORAL 01/11/17 14:00 02/10/17 13:59 01/12/17 09:24 Atorvastatin Calcium (Lipitor) 20 mg BEDTIME ORAL 01/10/17 21:00 02/09/17 20:59 01/11/17 21:34 Clonidine HCl (Catapres) 0.1 mg Q4H PRN ORAL bp over 160 syst 01/10/17 18:30 02/09/17 18:29 Clopidogrel Bisulfate (Plavix) 75 mg DAILY ORAL 01/11/17 14:00 02/10/17 13:59 01/12/17 09:24 Heparin Sodium (Porcine) (Heparin 5000 units/ml) 5,000 units EVERY 12 HOURS SUBQ 01/10/17 21:00 02/09/17 20:59 01/11/17 21:36 Hydralazine HCl (Apresoline) 10 mg Q4H PRN IV sbp more than 170 01/10/17 18:00 02/09/17 17:59 01/12/17 12:08 Hydralazine HCl (Apresoline) 50 mg Q8HR ORAL 01/10/17 22:00 02/09/17 21:59 01/12/17 15:01 Levothyroxine Sodium (Synthroid) 50 mcg DAILY@0630 ORAL 01/11/17 06:30 02/10/17 06:29 01/12/17 06:12 Lisinopril (Prinivil) 20 mg EVERY 12 HOURS ORAL 01/10/17 21:00 02/09/17 20:59 01/12/17 09:23 Metoprolol Tartrate (Lopressor) 12.5 mg Q12HR ORAL 01/12/17 09:00 02/11/17 08:59 01/12/17 09:23 Nifedipine (Procardia XL) 60 mg DAILY ORAL 01/11/17 09:00 02/10/17 08:59 01/12/17 09:24 Nitroglycerin (Ntg) 0.4 mg Every 5 Minutes PRN SL Prn Chest Pain 01/10/17 18:00 02/09/17 17:59 Ondansetron HCl (Zofran) 4 mg Q6H PRN IVP Nausea & Vomiting 01/10/17 18:30 02/09/17 18:29 Pantoprazole (Protonix) 40 mg DAILY ORAL 01/11/17 09:00 02/10/17 08:59 01/12/17 09:24 Polyethylene Glycol (Miralax) 17 gm DAILYPRN PRN ORAL Constipation 01/10/17 19:00 02/09/17 18:59 Temazepam (Restoril) 15 mg HSPRN PRN ORAL Insomnia 01/10/17 19:00 01/17/17 18:59 IGLESIA LOPES Jan 12, 2017 18:13
[2017-01-12 20:07] VITALS: BP 181/94
[2017-01-12] MEDS: Atorvastatin 20mg tab ORAL SCH (20:16)
[2017-01-13] VITALS (7 sets, daily range): BP systolic 149–196; BP diastolic 71–87
[2017-01-13] MEDS: HydrALAZINE 50mg tab ORAL SCH ×3 (05:38→21:47)
[2017-01-13] MEDS: Aspirin Baby 81mg ORAL SCH (09:24)
[2017-01-13] MEDS: Metoprolol Tartrate 12.5mg TAB ORAL SCH (09:25)
[2017-01-13] MEDS: Lisinopril 20mg tab ORAL SCH ×2 (09:26→20:35)
[2017-01-13] MEDS: Heparin 5000 units/ml inj SUBQ SCH ×2 (09:27→20:39)
--- NOTE | 2017-01-13 09:50 | Pulmonology Progress Note ---
Assessment/Plan Assessment/Plan ASSESSMENT HTN emergency,no CHF acute hypertensive encephalopathy acute ischemic strokes in L [employer] c/w embolism Diabetes mellitus, new onset ( [id number]) Hypercholesteremia moderate pulmonary HTN moderate TR PLAN OF CARE tele troponin x 3 negative ECG no acute ischemic changes, rule out for acute [place] neuro follows cardio follows MRI brain l4 x 2 cm acute nonhemorrhagic CVA in the left cerebellum/brachium pontis. Additional 2-3 mm foci of acute CVA involving different vascular territories within the cerebrum bilaterally. Need embolic w/up per cardio cannot start anticoagulation for 2 weeks bubble study negative for left to right shunt tele strips no evidence of A fib Carotid Duplex with mild stenosis BP management with multiple regimen of anti-HTN lipid panel with elevated TC and LDL on ASA and Plavix, statin dose increased ECHO with pEF 60-65% and RVSP of 46 c/w moderate pulmonary HTN, also evidence of moderate TR BS management started on Januvia and SS of insulin as needed goal to bring HgA1c under control diabetic diet , educated on diabetic, low fat low cholesterol diet diabetic teaching O2 HHN prn CXR no acute process PT/OT/ST dc plan to SNF for short term rehab discussed extensively with patient plan of care and need to comply with medication regimen case discussed and evaluated by supervising physician Addendum: BP uncontrolled transfer cancelled cardio optimized antu-HTN regimen further per cardio: plan CARLOS Sunday if still here, or outpatient discussed with cardio, recommended dc plan to acute [facility] case discussed and evaluated by supervising physician Subjective Allergies: Coded Allergies: ACETAMINOPHEN (Unverified Allergy, Unknown, 01/08/17) OXYCODONE (Unverified Allergy, Unknown, 01/08/17) Subjective denies chest pain, SOB no new weakness BP intermittently controlled Objective Last 24 Hour Vital Signs Date Time Temp Pulse Resp B/P Pulse Ox O2 Delivery O2 Flow Rate FiO2 01/13/17 09:26 158/83 01/13/17 09:25 68 158/83 01/13/17 09:25 68 158/83 01/13/17 08:45 98.1 68 18 158/83 97 Room Air 01/13/17 07:30 70 18 Room Air 21 01/13/17 05:38 158/72 01/13/17 04:00 68 01/13/17 03:58 98.6 71 19 163/78 94 Room Air 01/13/17 00:01 98.4 75 19 177/83 98 Room Air 01/13/17 00:00 74 01/12/17 21:43 158/85 01/12/17 21:39 158/85 01/12/17 20:26 69 18 Room Air 01/12/17 20:15 181/91 01/12/17 20:14 76 181/91 01/12/17 20:07 98.1 78 18 181/94 95 Room Air 01/12/17 20:00 73 01/12/17 16:00 97.8 67 21 170/87 96 Room Air 01/12/17 16:00 63 01/12/17 15:01 194/92 01/12/17 12:08 175/88 01/12/17 12:00 97.7 100 21 125/80 100 Room Air Intake and Output 01/12/17 01/13/17 19:00 07:00 Intake Total 600 ml Balance 600 ml Intake Oral 600 ml # Voids 2 2 General Appearance: no acute distress, other - A/A/O x 4 AA female, mild dysarthria HEENT: normocephalic, atraumatic, anicteric, mucous membranes moist, PERRL Respiratory/Chest: lungs clear, no respiratory distress, no accessory muscle use Cardiovascular: normal peripheral pulses, normal rate, regular rhythm, no JVD Abdomen: normal bowel sounds, soft, non tender, non distended Genitourinary: normal external genitalia Extremities: no edema, pedal pulses normal Neurologic/Psychiatric: alert, oriented x 3, responsive, other - mild dysarthria, some weakness L side Musculoskeletal: normal muscle bulk Current Medications Medications (Trade) Dose Ordered Sig/Melanie Route PRN Reason Start Time Stop Time Status Last Admin Dose Admin Albuterol/ Ipratropium (DuoNeb 0.5-3(2.5)mg/3ml) 3 ml Q4H PRN HHN Shortness of Breath 01/10/17 18:30 01/15/17 18:29 Aspirin (ASA) 81 mg DAILY ORAL 01/11/17 14:00 02/10/17 13:59 01/13/17 09:24 Atorvastatin Calcium (Lipitor) 20 mg BEDTIME ORAL 01/10/17 21:00 02/09/17 20:59 01/12/17 20:16 Clonidine HCl (Catapres) 0.1 mg Q4H PRN ORAL bp over 160 syst 01/10/17 18:30 02/09/17 18:29 Clopidogrel Bisulfate (Plavix) 75 mg DAILY ORAL 01/11/17 14:00 02/10/17 13:59 01/13/17 09:25 Heparin Sodium (Porcine) (Heparin 5000 units/ml) 5,000 units EVERY 12 HOURS SUBQ 01/10/17 21:00 02/09/17 20:59 01/13/17 09:27 Hydralazine HCl (Apresoline) 10 mg Q4H PRN IV sbp more than 170 01/10/17 18:00 02/09/17 17:59 01/12/17 21:39 Hydralazine HCl (Apresoline) 75 mg Q8HR ORAL 01/13/17 14:00 02/12/17 13:59 Levothyroxine Sodium (Synthroid) 50 mcg DAILY@0630 ORAL 01/11/17 06:30 02/10/17 06:29 01/13/17 05:20 Lisinopril (Prinivil) 20 mg EVERY 12 HOURS ORAL 01/10/17 21:00 02/09/17 20:59 01/13/17 09:26 Metoprolol Tartrate (Lopressor) 12.5 mg Q12HR ORAL 01/12/17 09:00 02/11/17 08:59 01/13/17 09:25 Nifedipine (Procardia XL) 90 mg DAILY ORAL 01/14/17 09:00 02/13/17 08:59 Nitroglycerin (Ntg) 0.4 mg Every 5 Minutes PRN SL Prn Chest Pain 01/10/17 18:00 02/09/17 17:59 Ondansetron HCl (Zofran) 4 mg Q6H PRN IVP Nausea & Vomiting 01/10/17 18:30 02/09/17 18:29 Pantoprazole (Protonix) 40 mg DAILY ORAL 01/11/17 09:00 02/10/17 08:59 01/13/17 09:24 Polyethylene Glycol (Miralax) 17 gm DAILYPRN PRN ORAL Constipation 01/10/17 19:00 02/09/17 18:59 Temazepam (Restoril) 15 mg HSPRN PRN ORAL Insomnia 01/10/17 19:00 01/17/17 18:59 Blu ([facility])Sulma NP Jan 13, 2017 09:49
--- NOTE | 2017-01-13 11:26 | General Progress Note ---
Assessment/Plan Status: stable Assessment/Plan Status; (1) Acute encephalopathy resolved, has CVA (2) Hypertensive emergency resolved (3) Hypo Thyroidism (4) High Cholestrol Plan; No labs today BP controlled, will adjust meds further Monitor renal parameters Avoid nephrotoxics- Per neuro Per orders Subjective ROS Limited/Unobtainable: No Allergies: Coded Allergies: ACETAMINOPHEN (Unverified Allergy, Unknown, 01/08/17) OXYCODONE (Unverified Allergy, Unknown, 01/08/17) Objective Last 24 Hour Vital Signs Date Time Temp Pulse Resp B/P Pulse Ox O2 Delivery O2 Flow Rate FiO2 01/13/17 09:26 158/83 01/13/17 09:25 68 158/83 01/13/17 09:25 68 158/83 01/13/17 08:45 98.1 68 18 158/83 97 Room Air 01/13/17 08:00 62 01/13/17 07:30 70 18 Room Air 21 01/13/17 05:38 158/72 01/13/17 04:00 68 01/13/17 03:58 98.6 71 19 163/78 94 Room Air 01/13/17 00:01 98.4 75 19 177/83 98 Room Air 01/13/17 00:00 74 01/12/17 21:43 158/85 01/12/17 21:39 158/85 01/12/17 20:26 69 18 Room Air 01/12/17 20:15 181/91 01/12/17 20:14 76 181/91 01/12/17 20:07 98.1 78 18 181/94 95 Room Air 01/12/17 20:00 73 01/12/17 16:00 97.8 67 21 170/87 96 Room Air 01/12/17 16:00 63 01/12/17 15:01 194/92 01/12/17 12:08 175/88 01/12/17 12:00 97.7 100 21 125/80 100 Room Air Intake and Output 01/12/17 01/13/17 19:00 07:00 Intake Total 600 ml Balance 600 ml Intake Oral 600 ml # Voids 2 2 Height (Feet): 5 Height (Inches): 9.00 Weight (Pounds): 169 General Appearance: no apparent distress Objective PE not changed SONG PEREA Jan 13, 2017 11:26
[2017-01-13] MEDS: sitaGLIPtin 50mg tab ORAL SCH (14:13)
[2017-01-13] MEDS: NovoLOG Insulin Flexpen SUBQ SCH ×2 (17:09→20:39)
--- NOTE | 2017-01-13 17:23 | Cardiology Progress Note ---
Assessment/Plan Assessment/Plan hypertensive encephalopathy cva ? embolic hyperlipidemia med noncompliance hypothyroid dm untreated bp is at tiem elevated will incerse nifedipine mri noted d/w neuro need embolic oliveira cannot start anticoagulation for 2 week labs ok bubble study neg for left to righ shunt holter not avialbel here may need hotler or ziopatch as outpt will need miguel can do next week here or as out pt dependign on pt preference tele strips reviewed here no afib documented on any of the strip d/w dr alexus boyle will dc bb start on clondidien she was takign before Subjective Cardiovascular: Denies: chest pain, lightheadedness, palpitations Respiratory: Denies: shortness of breath Gastrointestinal/Abdominal: Denies: abdomen distended Genitourinary: Denies: burning Objective Last 24 Hour Vital Signs Date Time Temp Pulse Resp B/P Pulse Ox O2 Delivery O2 Flow Rate FiO2 01/13/17 16:47 72 88 01/13/17 16:00 98.2 72 21 149/71 99 Room Air 01/13/17 16:00 68 01/13/17 14:14 178/87 01/13/17 13:59 178/87 01/13/17 12:58 196/86 01/13/17 12:00 98.2 67 18 196/86 97 Room Air 01/13/17 12:00 63 01/13/17 09:26 158/83 01/13/17 09:25 68 158/83 01/13/17 09:25 68 158/83 01/13/17 08:45 98.1 68 18 158/83 97 Room Air 01/13/17 08:00 62 01/13/17 07:30 70 18 Room Air 21 01/13/17 05:38 158/72 01/13/17 04:00 68 01/13/17 03:58 98.6 71 19 163/78 94 Room Air 01/13/17 00:01 98.4 75 19 177/83 98 Room Air 01/13/17 00:00 74 01/12/17 21:43 158/85 01/12/17 21:39 158/85 01/12/17 20:26 69 18 Room Air 01/12/17 20:15 181/91 01/12/17 20:14 76 181/91 01/12/17 20:07 98.1 78 18 181/94 95 Room Air 01/12/17 20:00 73 General Appearance: alert Neck: no JVD Cardiovascular: normal rate, regular rhythm Respiratory/Chest: lungs clear, normal breath sounds Abdomen: normal bowel sounds, non tender, soft Extremities: no swelling Intake and Output 01/12/17 01/13/17 19:00 07:00 Intake Total 600 ml Balance 600 ml Intake Oral 600 ml # Voids 2 2 JESUS ROE Jan 13, 2017 17:23
[2017-01-13] MEDS ORDERED: Metoprolol 25mg tab ORAL SCH (21:00)
[2017-01-14] VITALS: BP 174/78
[2017-01-14 04:00] VITALS: BP 165/86
[2017-01-14] MEDS: HydrALAZINE 50mg tab ORAL SCH ×3 (06:13→22:09)
[2017-01-14] MEDS: sitaGLIPtin 50mg tab ORAL SCH (06:13)
[2017-01-14] MEDS: NovoLOG Insulin Flexpen SUBQ SCH ×4 (06:14→20:38)
[2017-01-14 07:13] LABS: BASOPHILS % (AUTO) 1.2 % (0.0-2.0); EOSINOPHILS % (AUTO) 2.3 % (0.0-3.0); LYMPHOCYTES % (AUTO) 30.4 % (20.0-45.0); MEAN CORPUSCULAR HEMOGLOBIN 27.1 PG (27.0-31.0); MEAN CORPUSCULAR HGB CONC 31.3 G/DL (32.0-36.0); MEAN CORPUSCULAR VOLUME 87 FL (80-99); MEAN PLATELET VOLUME 8.8 FL (6.5-10.1); MONOCYTES % (AUTO) 11.5 % (1.0-10.0); NEUTROPHILS % (AUTO) 54.6 % (45.0-75.0); PLATELET COUNT 296 K/UL (150-450); RED BLOOD COUNT 5.38 M/UL (4.20-5.40); RED CELL DISTRIBUTION WIDTH 12.7 % (11.6-14.8); WHITE BLOOD COUNT 6.9 K/UL (4.8-10.8)
[2017-01-14 07:41] LABS: ALBUMIN/GLOBULIN RATIO 1.1 (1.0-2.7); CALCIUM 10.2 mg/dL (8.6-10.2); CREATININE 1.3 mg/dL (0.5-0.9); GLOMERULAR FILTRATION RATE 49.3 mL/min (>60); MAGNESIUM 1.6 mg/dL (1.7-2.5); PHOSPHORUS 4.1 mg/dL (2.5-4.8); POTASSIUM 4.2 mEQ/L (3.4-4.9); TOTAL PROTEIN 7.6 g/dL (6.6-8.7)
[2017-01-14 08:00] VITALS: BP 132/83
[2017-01-14 08:32] LABS: CRP QUANT 1.7 mg/dL (< 0.5); URIC ACID 7.3 mg/dL (3.0-7.5)
[2017-01-14] MEDS: Aspirin Baby 81mg ORAL SCH (08:51)
[2017-01-14] MEDS: Lisinopril 20mg tab ORAL SCH ×2 (08:51→20:39)
[2017-01-14] MEDS: Heparin 5000 units/ml inj SUBQ SCH ×2 (08:54→20:39)
--- NOTE | 2017-01-14 09:29 | General Progress Note ---
Assessment/Plan Status: unchanged Assessment/Plan Status; (1) Acute encephalopathy resolved, has CVA (2) Hypertensive emergency resolved (3) Hypo Thyroidism (4) High Cholestrol Plan; No labs today BP controlled, will adjust meds further Monitor renal parameters Avoid nephrotoxics- Per neuro Per orders Subjective ROS Limited/Unobtainable: No Constitutional: Reports: malaise Allergies: Coded Allergies: ACETAMINOPHEN (Unverified Allergy, Unknown, 01/08/17) OXYCODONE (Unverified Allergy, Unknown, 01/08/17) Objective Last 24 Hour Vital Signs Date Time Temp Pulse Resp B/P Pulse Ox O2 Delivery O2 Flow Rate FiO2 01/14/17 08:51 74 132/83 01/14/17 08:51 132/83 01/14/17 08:00 97.7 74 19 132/83 97 Room Air 01/14/17 06:58 163/119 01/14/17 06:13 164/84 01/14/17 04:00 98.2 78 20 165/86 97 Room Air 01/14/17 04:00 72 01/14/17 01:17 74 16 Room Air 21 01/14/17 00:00 98.0 71 20 174/78 97 Room Air 01/14/17 00:00 69 01/13/17 21:47 161/91 01/13/17 20:35 164/74 01/13/17 20:00 98.4 79 20 164/74 97 Room Air 01/13/17 20:00 74 01/13/17 18:10 72 83 01/13/17 16:47 72 88 01/13/17 16:00 98.2 72 21 149/71 99 Room Air 01/13/17 16:00 68 01/13/17 14:14 178/87 01/13/17 13:59 178/87 01/13/17 12:58 196/86 01/13/17 12:00 98.2 67 18 196/86 97 Room Air 01/13/17 12:00 63 Intake and Output 01/13/17 01/14/17 19:00 07:00 Intake Total 1340 ml 200 ml Output Total 700 ml 150 ml Balance 640 ml 50 ml Intake Oral 1340 ml 200 ml Output Urine Total 700 ml 150 ml # Voids 4 2 Laboratory Tests 01/14/17 06:45: White Blood Count 6.9, Red Blood Count 5.38, Hemoglobin 14.6, Hematocrit 46.6, Mean Corpuscular Volume 87, Mean Corpuscular Hemoglobin 27.1, Mean Corpuscular Hemoglobin Concent 31.3L, Red Cell Distribution Width 12.7, Platelet Count 296, Mean Platelet Volume 8.8, Neutrophils (%) (Auto) 54.6, Lymphocytes (%) (Auto) 30.4, Monocytes (%) (Auto) 11.5H, Eosinophils (%) (Auto) 2.3, Basophils (%) ( Auto) 1.2, Sodium Level 141, Potassium Level 4.2, Chloride Level 101, Carbon Dioxide Level 25, Anion Gap 15, Blood Urea Nitrogen 18, Creatinine 1.3H, Estimat Glomerular Filtration Rate 49.3, Glucose Level 153H, Uric Acid 7.3, Calcium Level 10.2, Phosphorus Level 4.1, Magnesium Level 1.6L, Total Bilirubin 0.4, Aspartate Amino Transf (AST/SGOT) 27, Alanine Aminotransferase (ALT/SGPT) 18, Alkaline Phosphatase 83, C-Reactive Protein, Quantitative 1.7H, Total Protein 7.6, Albumin 4.0, Globulin 3.6, Albumin/Globulin Ratio 1.1 Height (Feet): 5 Height (Inches): 9.00 Weight (Pounds): 166 General Appearance: no apparent distress Objective PE not changed SONG PEREA Jan 14, 2017 09:29
[2017-01-14 12:00] VITALS: BP 138/98
[2017-01-14] MEDS ORDERED: MIRALAX17 G2 ORAL (12:59)
[2017-01-14] MEDS ORDERED: NOVOLOG100 UNITS1 SUBQ (12:59)
[2017-01-14] MEDS ORDERED: JANUVIA50 MG ORAL (12:59)
[2017-01-14] MEDS ORDERED: NITROSTAT0.4 M1 SL (12:59)
[2017-01-14] MEDS ORDERED: APRESOLINE50 MG ORAL (12:59)
[2017-01-14] MEDS ORDERED: PROCARDIA XL60 MG ORAL (12:59)
[2017-01-14] MEDS ORDERED: CLONIDINE0.1 MG ORAL (12:59)
[2017-01-14] MEDS ORDERED: ATORVASTATIN CA40 MG ORAL (12:59)
--- NOTE | 2017-01-14 13:00 | Pulmonology Progress Note ---
Assessment/Plan Assessment/Plan ASSESSMENT HTN emergency,no CHF acute hypertensive encephalopathy acute ischemic strokes in L [employer] c/w embolism Diabetes mellitus, new onset ( GiH1d-7.2) Hypercholesteremia moderate pulmonary HTN moderate TR PLAN OF CARE tele troponin x 3 negative ECG no acute ischemic changes, rule out for acute [place] neuro follows cardio follows MRI brain l4 x 2 cm acute nonhemorrhagic CVA in the left cerebellum/brachium pontis. Additional 2-3 mm foci of acute CVA involving different vascular territories within the cerebrum bilaterally. Need embolic w/up per cardio cannot start anticoagulation for 2 weeks bubble study negative for left to right shunt tele strips no evidence of A fib Carotid Duplex with mild stenosis BP management with multiple regimen of anti-HTN lipid panel with elevated TC and LDL on ASA and Plavix, statin dose increased ECHO with pEF 60-65% and RVSP of 46 c/w moderate pulmonary HTN, also evidence of moderate TR BS management started on Januvia and SS of insulin as needed goal to bring HgA1c under control diabetic diet , educated on diabetic, low fat low cholesterol diet diabetic teaching O2 HHN prn CXR no acute process PT/OT/ST dc plan to SNF for short term rehab discussed extensively with patient plan of care and need to comply with medication regimen case discussed and evaluated by supervising physician Addendum: BP uncontrolled transfer cancelled cardio optimized anti-HTN regimen further per cardio: plan CARLOS Sunday if still here, or outpatient discussed with cardio, recommended dc [facility] per supervising phsyciian need rehab by SNF case discussed and evaluated by supervising physician Subjective Allergies: Coded Allergies: ACETAMINOPHEN (Unverified Allergy, Unknown, 01/08/17) OXYCODONE (Unverified Allergy, Unknown, 01/08/17) Subjective denies chest pain, SOB no new weakness BP intermittently controlled Objective Last 24 Hour Vital Signs Date Time Temp Pulse Resp B/P Pulse Ox O2 Delivery O2 Flow Rate FiO2 01/14/17 12:00 97.3 98 21 138/98 93 Room Air 01/14/17 08:51 74 132/83 01/14/17 08:51 132/83 01/14/17 08:45 87 16 Room Air 21 01/14/17 08:00 97.7 74 19 132/83 97 Room Air 01/14/17 06:58 163/119 01/14/17 06:13 164/84 01/14/17 04:00 98.2 78 20 165/86 97 Room Air 01/14/17 04:00 72 01/14/17 01:17 74 16 Room Air 21 01/14/17 00:00 98.0 71 20 174/78 97 Room Air 01/14/17 00:00 69 01/13/17 21:47 161/91 01/13/17 20:35 164/74 01/13/17 20:00 98.4 79 20 164/74 97 Room Air 01/13/17 20:00 74 01/13/17 18:10 72 83 01/13/17 16:47 72 88 01/13/17 16:00 98.2 72 21 149/71 99 Room Air 01/13/17 16:00 68 01/13/17 14:14 178/87 01/13/17 13:59 178/87 01/13/17 12:58 196/86 Intake and Output 01/13/17 01/14/17 18:59 06:59 Intake Total 1340 ml 200 ml Output Total 700 ml 150 ml Balance 640 ml 50 ml Intake Oral 1340 ml 200 ml Output Urine Total 700 ml 150 ml # Voids 4 2 Objective General Appearance: no acute distress, other - A/A/O x 4 AA female, mild dysarthria HEENT: normocephalic, atraumatic, anicteric, mucous membranes moist, PERRL Respiratory/Chest: lungs clear, no respiratory distress, no accessory muscle use Cardiovascular: normal peripheral pulses, normal rate, regular rhythm, no JVD Abdomen: normal bowel sounds, soft, non tender, non distended Genitourinary: normal external genitalia Extremities: no edema, pedal pulses normal Neurologic/Psychiatric: alert, oriented x 3, responsive, other - mild dysarthria, some weakness L side Musculoskeletal: normal muscle bulk Laboratory Tests 01/14/17 06:45: White Blood Count 6.9, Red Blood Count 5.38, Hemoglobin 14.6, Hematocrit 46.6, Mean Corpuscular Volume 87, Mean Corpuscular Hemoglobin 27.1, Mean Corpuscular Hemoglobin Concent 31.3L, Red Cell Distribution Width 12.7, Platelet Count 296, Mean Platelet Volume 8.8, Neutrophils (%) (Auto) 54.6, Lymphocytes (%) (Auto) 30.4, Monocytes (%) (Auto) 11.5H, Eosinophils (%) (Auto) 2.3, Basophils (%) ( Auto) 1.2, Sodium Level 141, Potassium Level 4.2, Chloride Level 101, Carbon Dioxide Level 25, Anion Gap 15, Blood Urea Nitrogen 18, Creatinine 1.3H, Estimat Glomerular Filtration Rate 49.3, Glucose Level 153H, Uric Acid 7.3, Calcium Level 10.2, Phosphorus Level 4.1, Magnesium Level 1.6L, Total Bilirubin 0.4, Aspartate Amino Transf (AST/SGOT) 27, Alanine Aminotransferase (ALT/SGPT) 18, Alkaline Phosphatase 83, C-Reactive Protein, Quantitative 1.7H, Total Protein 7.6, Albumin 4.0, Globulin 3.6, Albumin/Globulin Ratio 1.1 Current Medications Medications (Trade) Dose Ordered Sig/Melanie Route PRN Reason Start Time Stop Time Status Last Admin Dose Admin Albuterol/ Ipratropium (DuoNeb 0.5-3(2.5)mg/3ml) 3 ml Q4H PRN HHN Shortness of Breath 01/10/17 18:30 01/15/17 18:29 Aspirin (ASA) 81 mg DAILY ORAL 01/11/17 14:00 02/10/17 13:59 01/14/17 08:51 Atorvastatin Calcium (Lipitor) 40 mg BEDTIME ORAL 01/13/17 21:00 02/12/17 20:59 01/13/17 20:34 Clonidine HCl (Catapres) 0.1 mg Q8HR ORAL 01/14/17 14:00 02/13/17 13:59 Clopidogrel Bisulfate (Plavix) 75 mg DAILY ORAL 01/11/17 14:00 02/10/17 13:59 01/14/17 08:51 Dextrose (Dextrose 50%) STAT PRN IV Hypoglycemia 01/13/17 13:15 02/12/17 13:14 Heparin Sodium (Porcine) (Heparin 5000 units/ml) 5,000 units EVERY 12 HOURS SUBQ 01/10/17 21:00 02/09/17 20:59 01/14/17 08:54 Hydralazine HCl (Apresoline) 75 mg Q8HR ORAL 01/13/17 14:00 02/12/17 13:59 01/14/17 06:13 Insulin Aspart (NovoLOG) BEFORE MEALS AND HS SUBQ 01/13/17 16:30 02/12/17 16:29 01/14/17 11:58 Levothyroxine Sodium (Synthroid) 50 mcg DAILY@0630 ORAL 01/11/17 06:30 02/10/17 06:29 01/14/17 06:13 Lisinopril (Prinivil) 20 mg EVERY 12 HOURS ORAL 01/10/17 21:00 02/09/17 20:59 01/14/17 08:51 Nifedipine (Procardia XL) 90 mg DAILY ORAL 01/14/17 09:00 02/13/17 08:59 01/14/17 08:51 Nitroglycerin (Ntg) 0.4 mg Every 5 Minutes PRN SL Prn Chest Pain 01/10/17 18:00 02/09/17 17:59 Ondansetron HCl (Zofran) 4 mg Q6H PRN IVP Nausea & Vomiting 01/10/17 18:30 02/09/17 18:29 Pantoprazole (Protonix) 40 mg DAILY ORAL 01/11/17 09:00 02/10/17 08:59 01/14/17 08:51 Polyethylene Glycol (Miralax) 17 gm DAILYPRN PRN ORAL Constipation 01/10/17 19:00 02/09/17 18:59 Sitagliptin Phosphate (Januvia) 50 mg ACBREAKFAST ORAL 01/13/17 14:00 02/12/17 13:59 01/14/17 06:13 Temazepam (Restoril) 15 mg HSPRN PRN ORAL Insomnia 01/10/17 19:00 01/17/17 18:59 Sulma Hurt NP ([facility]) Jan 14, 2017 13:00
--- NOTE | 2017-01-14 13:01 | Discharge Instructions ---
Discharge Instructions Discharge Instructions Follow up with: MD at the facility Diet: 2 GM sodium (low sodium), diabetic calorie control, cardiac 2 GM Na, low fat Resume Normal Activity?: Yes Activity: resume normal activities, as tolerated For Congestive Heart Failure Reminder Report to your physician any weight gain of 5 pounds or more in one week. Blu (DanaeSulma dalton NP Jan 14, 2017 13:01
--- NOTE | 2017-01-14 14:23 | Cardiology Progress Note ---
Assessment/Plan Assessment/Plan hypertensive encephalopathy cva ? embolic hyperlipidemia med noncompliance hypothyroid dm untreated bp is at tiem elevated will incerse nifedipine adn clonidien mri noted d/w neuro need embolic oliveira cannot start anticoagulation for 2 week labs ok bubble study neg for left to righ shunt holter not avialbel here may need hotler or ziopatch as outpt will need miguel can do next week here or as out pt dependign on pt preference tele strips reviewed here no afib documented on any of the strip as of 01/14/2017 will dc bb Subjective Cardiovascular: Denies: chest pain, lightheadedness, palpitations Respiratory: Denies: shortness of breath Gastrointestinal/Abdominal: Denies: abdominal pain Genitourinary: Denies: burning Objective Last 24 Hour Vital Signs Date Time Temp Pulse Resp B/P Pulse Ox O2 Delivery O2 Flow Rate FiO2 01/14/17 12:00 97.3 98 21 138/98 93 Room Air 01/14/17 12:00 92 01/14/17 08:51 74 132/83 01/14/17 08:51 132/83 01/14/17 08:45 87 16 Room Air 01/14/17 08:00 97.7 74 19 132/83 97 Room Air 01/14/17 08:00 67 01/14/17 06:58 163/119 01/14/17 06:13 164/84 01/14/17 04:00 98.2 78 20 165/86 97 Room Air 01/14/17 04:00 72 01/14/17 01:17 74 16 Room Air 01/14/17 00:00 98.0 71 20 174/78 97 Room Air 01/14/17 00:00 69 01/13/17 21:47 161/91 01/13/17 20:35 164/74 01/13/17 20:00 98.4 79 20 164/74 97 Room Air 01/13/17 20:00 74 01/13/17 18:10 72 83 01/13/17 16:47 72 88 01/13/17 16:00 98.2 72 21 149/71 99 Room Air 01/13/17 16:00 68 General Appearance: no apparent distress, alert Neck: supple Cardiovascular: normal rate, regular rhythm Respiratory/Chest: chest wall non-tender, lungs clear, normal breath sounds, no respiratory distress Abdomen: normal bowel sounds, non tender, soft Extremities: no swelling Intake and Output 01/13/17 01/14/17 19:00 07:00 Intake Total 1340 ml 200 ml Output Total 700 ml 150 ml Balance 640 ml 50 ml Intake Oral 1340 ml 200 ml Output Urine Total 700 ml 150 ml # Voids 4 2 Laboratory Tests Test 01/14/17 06:45 White Blood Count 6.9 K/UL (4.8-10.8) Red Blood Count 5.38 M/UL (4.20-5.40) Hemoglobin 14.6 G/DL (12.0-16.0) Hematocrit 46.6 % (37.0-47.0) Mean Corpuscular Volume 87 FL (80-99) Mean Corpuscular Hemoglobin 27.1 PG (27.0-31.0) Mean Corpuscular Hemoglobin Concent 31.3 G/DL (32.0-36.0) L Red Cell Distribution Width 12.7 % (11.6-14.8) Platelet Count 296 K/UL (150-450) Mean Platelet Volume 8.8 FL (6.5-10.1) Neutrophils (%) (Auto) 54.6 % (45.0-75.0) Lymphocytes (%) (Auto) 30.4 % (20.0-45.0) Monocytes (%) (Auto) 11.5 % (1.0-10.0) H Eosinophils (%) (Auto) 2.3 % (0.0-3.0) Basophils (%) (Auto) 1.2 % (0.0-2.0) Sodium Level 141 mEQ/L (135-145) Potassium Level 4.2 mEQ/L (3.4-4.9) Chloride Level 101 mEQ/L (98-107) Carbon Dioxide Level 25 mEQ/L (20-30) Anion Gap 15 (5-15) Blood Urea Nitrogen 18 mg/dL (7-23) Creatinine 1.3 mg/dL (0.5-0.9) H Estimat Glomerular Filtration Rate 49.3 mL/min (>60) Glucose Level 153 mg/dL (74-106) H Uric Acid 7.3 mg/dL (3.0-7.5) Calcium Level 10.2 mg/dL (8.6-10.2) Phosphorus Level 4.1 mg/dL (2.5-4.8) Magnesium Level 1.6 mg/dL (1.7-2.5) L Total Bilirubin 0.4 mg/dL (0.0-1.2) Aspartate Amino Transf (AST/SGOT) 27 U/L (5-40) Alanine Aminotransferase (ALT/SGPT) 18 U/L (3-33) Alkaline Phosphatase 83 U/L (35-104) C-Reactive Protein, Quantitative 1.7 mg/dL (< 0.5) H Total Protein 7.6 g/dL (6.6-8.7) Albumin 4.0 g/dL (3.5-5.2) Globulin 3.6 g/dL Albumin/Globulin Ratio 1.1 (1.0-2.7) JESUS ROE Jan 14, 2017 14:23
[2017-01-14 16:00] VITALS: BP 148/70
[2017-01-14 19:57] VITALS: BP 153/80
[2017-01-15 00:19] VITALS: BP 146/76
[2017-01-15 04:30] VITALS: BP 139/78
[2017-01-15] MEDS: sitaGLIPtin 50mg tab ORAL SCH (06:23)
[2017-01-15] MEDS: HydrALAZINE 50mg tab ORAL SCH ×3 (06:23→22:24)
[2017-01-15] MEDS: NovoLOG Insulin Flexpen SUBQ SCH ×4 (06:24→21:13)
[2017-01-15 08:02] VITALS: BP 124/71
--- NOTE | 2017-01-15 09:52 | General Progress Note ---
Assessment/Plan Status: stable Assessment/Plan Status; (1) Acute encephalopathy resolved, has CVA (2) Hypertensive emergency resolved (3) Hypo Thyroidism (4) High Cholestrol Plan; No labs today BP controlled, will adjust meds further Monitor renal parameters Avoid nephrotoxics- Per neuro Per orders Subjective ROS Limited/Unobtainable: No Allergies: Coded Allergies: ACETAMINOPHEN (Unverified Allergy, Unknown, 01/08/17) OXYCODONE (Unverified Allergy, Unknown, 01/08/17) Objective Last 24 Hour Vital Signs Date Time Temp Pulse Resp B/P Pulse Ox O2 Delivery O2 Flow Rate FiO2 01/15/17 08:02 97.9 63 18 124/71 99 Room Air 01/15/17 06:23 128/75 01/15/17 06:00 128/75 01/15/17 04:30 97.9 74 20 139/78 74 Room Air 01/15/17 04:00 68 01/15/17 01:16 67 16 Room Air 21 01/15/17 00:19 98.0 76 20 146/76 97 Room Air 01/15/17 00:00 70 01/14/17 22:09 156/82 01/14/17 22:09 156/82 01/14/17 20:39 135/80 01/14/17 20:00 73 01/14/17 19:57 97.9 80 20 153/80 98 Room Air 01/14/17 17:22 0 01/14/17 16:00 82 01/14/17 16:00 97.7 80 20 148/70 96 Room Air 01/14/17 14:00 148/70 01/14/17 14:00 148/70 01/14/17 12:00 97.3 98 21 138/98 93 Room Air 01/14/17 12:00 92 Intake and Output 01/14/17 01/15/17 19:00 07:00 Intake Total 360 ml Balance 360 ml Intake Oral 360 ml # Voids 1 Height (Feet): 5 Height (Inches): 9.00 Weight (Pounds): 171 General Appearance: no apparent distress Objective PE not changed SONG PEREA Jan 15, 2017 09:52
[2017-01-15] MEDS: Lisinopril 20mg tab ORAL SCH ×2 (10:15→21:11)
[2017-01-15] MEDS: Heparin 5000 units/ml inj SUBQ SCH ×2 (10:20→21:12)
[2017-01-15] MEDS: Aspirin Baby 81mg ORAL SCH (10:23)
[2017-01-15 11:47] VITALS: BP 130/68
--- NOTE | 2017-01-15 14:59 | Pulmonology Progress Note ---
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 (3) Acute encephalopathy (4) Hypertensive emergency, no CHF Assessment/Plan all noted bp controlled will need rehab for CARLOS in am pt/ot f/u cardio and neuro Subjective ROS Limited/Unobtainable: Yes Constitutional: Reports: no symptoms HEENT: Repors: no symptoms Allergies: Coded Allergies: ACETAMINOPHEN (Unverified Allergy, Unknown, 01/08/17) OXYCODONE (Unverified Allergy, Unknown, 01/08/17) Objective Last 24 Hour Vital Signs Date Time Temp Pulse Resp B/P Pulse Ox O2 Delivery O2 Flow Rate FiO2 01/15/17 14:49 147/72 01/15/17 14:48 147/72 01/15/17 11:47 97.5 80 18 130/68 99 Room Air 01/15/17 10:15 124/71 01/15/17 09:10 82 01/15/17 09:05 82 01/15/17 08:02 97.9 63 18 124/71 99 Room Air 01/15/17 08:00 66 16 Room Air 21 01/15/17 06:23 128/75 01/15/17 06:00 128/75 01/15/17 04:30 97.9 74 20 139/78 74 Room Air 01/15/17 04:00 68 01/15/17 01:16 67 16 Room Air 21 01/15/17 00:19 98.0 76 20 146/76 97 Room Air 01/15/17 00:00 70 01/14/17 22:09 156/82 01/14/17 22:09 156/82 01/14/17 20:39 135/80 01/14/17 20:00 73 01/14/17 19:57 97.9 80 20 153/80 98 Room Air 01/14/17 17:22 0 01/14/17 16:00 82 01/14/17 16:00 97.7 80 20 148/70 96 Room Air Intake and Output 01/14/17 01/15/17 19:00 07:00 Intake Total 360 ml Balance 360 ml Intake Oral 360 ml # Voids 1 General Appearance: WD/WN, no acute distress HEENT: normocephalic Respiratory/Chest: chest wall non-tender, lungs clear Breasts: no masses Cardiovascular: normal peripheral pulses Abdomen: normal bowel sounds, soft, non tender Genitourinary: normal external genitalia Extremities: no cyanosis 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, abnormal gait Lymphatic: no neck adenopathy Current Medications Medications (Trade) Dose Ordered Sig/Melanie Route PRN Reason Start Time Stop Time Status Last Admin Dose Admin Albuterol/ Ipratropium (DuoNeb 0.5-3(2.5)mg/3ml) 3 ml Q4H PRN HHN Shortness of Breath 01/10/17 18:30 01/15/17 18:29 Aspirin (ASA) 81 mg DAILY ORAL 01/11/17 14:00 02/10/17 13:59 01/15/17 10:23 Atorvastatin Calcium (Lipitor) 40 mg BEDTIME ORAL 01/13/17 21:00 02/12/17 20:59 01/14/17 20:39 Clonidine HCl (Catapres) 0.1 mg Q8HR ORAL 01/14/17 14:00 02/13/17 13:59 01/15/17 14:49 Clopidogrel Bisulfate (Plavix) 75 mg DAILY ORAL 01/11/17 14:00 02/10/17 13:59 01/15/17 10:13 Dextrose (Dextrose 50%) STAT PRN IV Hypoglycemia 01/13/17 13:15 02/12/17 13:14 Heparin Sodium (Porcine) (Heparin 5000 units/ml) 5,000 units EVERY 12 HOURS SUBQ 01/10/17 21:00 02/09/17 20:59 01/15/17 10:20 Hydralazine HCl (Apresoline) 50 mg Q8HR ORAL 01/15/17 14:00 02/14/17 13:59 01/15/17 14:48 Insulin Aspart (NovoLOG) BEFORE MEALS AND HS SUBQ 01/13/17 16:30 02/12/17 16:29 01/15/17 12:39 Levothyroxine Sodium (Synthroid) 50 mcg DAILY@0630 ORAL 01/11/17 06:30 02/10/17 06:29 01/15/17 06:23 Lisinopril (Prinivil) 20 mg EVERY 12 HOURS ORAL 01/10/17 21:00 02/09/17 20:59 01/15/17 10:15 Nifedipine (Procardia XL) 60 mg DAILY ORAL 01/16/17 09:00 02/15/17 08:59 Nitroglycerin (Ntg) 0.4 mg Every 5 Minutes PRN SL Prn Chest Pain 01/10/17 18:00 02/09/17 17:59 Ondansetron HCl (Zofran) 4 mg Q6H PRN IVP Nausea & Vomiting 01/10/17 18:30 02/09/17 18:29 Pantoprazole (Protonix) 40 mg DAILY ORAL 01/11/17 09:00 02/10/17 08:59 01/15/17 10:16 Polyethylene Glycol (Miralax) 17 gm DAILYPRN PRN ORAL Constipation 01/10/17 19:00 02/09/17 18:59 Sitagliptin Phosphate (Januvia) 50 mg ACBREAKFAST ORAL 01/13/17 14:00 02/12/17 13:59 01/15/17 06:23 Temazepam (Restoril) 15 mg HSPRN PRN ORAL Insomnia 01/10/17 19:00 01/17/17 18:59 IGLESIA LOPES Jan 15, 2017 14:59
[2017-01-15 16:17] VITALS: BP 147/72
[2017-01-15 20:00] VITALS: BP 140/75
--- NOTE | 2017-01-15 20:32 | Cardiology Progress Note ---
Assessment/Plan Assessment/Plan hypertensive encephalopathy cva ? embolic hyperlipidemia med noncompliance hypothyroid dm untreated mri noted d/w neuro need embolic oliveira cannot start anticoagulation for 2 week labs ok bubble study neg for left to righ shunt holter not avialbel here may need hotler or ziopatch as outpt tele strips reviewed here no afib documented on any of the strip as of 01/15/2017 miguel sched for tomorrow i wil discussed with pt about possible risk adn complication of miguel , alternatives discussed [pat gave informed consent to have MIGUEL done under moderate sedation Subjective Cardiovascular: Denies: chest pain, lightheadedness, palpitations Respiratory: Reports: other, Denies: shortness of breath Gastrointestinal/Abdominal: Reports: other - no dysphagia, Denies: abdominal pain Genitourinary: Denies: burning Objective Last 24 Hour Vital Signs Date Time Temp Pulse Resp B/P Pulse Ox O2 Delivery O2 Flow Rate FiO2 01/15/17 16:17 97.5 71 18 147/72 98 Room Air 01/15/17 16:00 71 01/15/17 14:49 147/72 01/15/17 14:48 147/72 01/15/17 12:00 73 01/15/17 11:47 97.5 80 18 130/68 99 Room Air 01/15/17 10:15 124/71 01/15/17 09:10 82 01/15/17 09:05 82 01/15/17 08:02 97.9 63 18 124/71 99 Room Air 01/15/17 08:00 63 01/15/17 08:00 66 16 Room Air 21 01/15/17 06:23 128/75 01/15/17 06:00 128/75 01/15/17 04:30 97.9 74 20 139/78 74 Room Air 01/15/17 04:00 68 01/15/17 01:16 67 16 Room Air 21 01/15/17 00:19 98.0 76 20 146/76 97 Room Air 01/15/17 00:00 70 01/14/17 22:09 156/82 01/14/17 22:09 156/82 01/14/17 20:39 135/80 General Appearance: alert Cardiovascular: normal rate, regular rhythm Respiratory/Chest: lungs clear, normal breath sounds Abdomen: normal bowel sounds, non tender, soft Extremities: no swelling Intake and Output 8/6/17 8/7/17 19:00 07:00 Intake Total 360 ml Balance 360 ml Intake Oral 360 ml # Voids 1 JESUS ROE Jan 15, 2017 20:32
[2017-01-16] VITALS (10 sets, daily range): BP systolic 112–157; BP diastolic 57–77
[2017-01-16] MEDS: HydrALAZINE 50mg tab ORAL SCH ×2 (06:00→16:41)
[2017-01-16] MEDS: NovoLOG Insulin Flexpen SUBQ SCH ×3 (06:30→16:30)
[2017-01-16] MEDS: sitaGLIPtin 50mg tab ORAL SCH (06:30)
[2017-01-16] MEDS: Heparin 5000 units/ml inj SUBQ SCH (09:00)
[2017-01-16] MEDS: Lisinopril 20mg tab ORAL SCH (09:00)
[2017-01-16] MEDS: Aspirin Baby 81mg ORAL SCH (09:00)
--- NOTE | 2017-01-16 09:02 | Cardiology Report ---
APPROVED REPORT EKG Measurement Heart [id number] Normal sinus rhythm Minimal voltage criteria for LVH, may be normal variant T wave abnormality, consider inferolateral ischemia Abnormal ECG
--- NOTE | 2017-01-16 09:10 | General Progress Note ---
Assessment/Plan Status: stable Assessment/Plan Status; (1) Acute encephalopathy resolved, has CVA (2) Hypertensive emergency resolved (3) Hypo Thyroidism (4) High Cholestrol Plan; No labs today BP controlled, will adjust meds further Monitor renal parameters Avoid nephrotoxics- Per neuro Per orders Subjective ROS Limited/Unobtainable: No Constitutional: Reports: malaise Allergies: Coded Allergies: ACETAMINOPHEN (Unverified Allergy, Unknown, 01/08/17) OXYCODONE (Unverified Allergy, Unknown, 01/08/17) Objective Last 24 Hour Vital Signs Date Time Temp Pulse Resp B/P Pulse Ox O2 Delivery O2 Flow Rate FiO2 01/16/17 07:39 97.2 63 18 145/77 97 Room Air 01/16/17 04:00 66 01/16/17 04:00 97.7 72 18 157/72 98 01/16/17 00:00 98.0 60 20 138/63 97 Room Air 01/16/17 00:00 65 01/15/17 22:24 143/86 01/15/17 22:24 143/86 01/15/17 21:11 151/68 01/15/17 20:00 97.7 63 24 140/75 97 Room Air 01/15/17 20:00 65 01/15/17 19:15 71 16 Room Air 21 01/15/17 16:17 97.5 71 18 147/72 98 Room Air 01/15/17 16:00 71 01/15/17 14:49 147/72 01/15/17 14:48 147/72 01/15/17 12:00 73 01/15/17 11:47 97.5 80 18 130/68 99 Room Air 01/15/17 10:15 124/71 01/15/17 09:10 82 Intake and Output 01/15/17 01/16/17 19:00 07:00 Intake Total 720 ml Output Total 400 ml 2 ml Balance 320 ml -2 ml Intake Oral 720 ml Output Urine Total 400 ml 2 ml Height (Feet): 5 Height (Inches): 9.00 Weight (Pounds): 166 General Appearance: no apparent distress Objective PE not changed SONG PEREA Jan 16, 2017 09:10
[2017-01-16] MEDS ORDERED: Midazolam 2mg/2ml Inj ONE (11:30)
[2017-01-16] MEDS ORDERED: LR 1000ml ONE (11:30)
[2017-01-16] MEDS ORDERED: Propofol 10mg/ml 20ml IV ONE (11:30)
[2017-01-16] MEDS ORDERED: Alfentanil 2ml Inj ONE (11:30)
[2017-01-16] MEDS ORDERED: Lidocaine 1% MPF 10mg/ml 5ml ONE (11:30)
[2017-01-16] MEDS ORDERED: NS 550ML IV ONE (11:30)
[2017-01-16] MEDS ORDERED: LR 1000ml 1,000 ML IVLG SCH (11:31)
[2017-01-16] MEDS ORDERED: Meperidine 25mg/0.5ml Inj (FOR RIGORS ONLY) IV PRN (11:45)
[2017-01-16] MEDS ORDERED: fentaNYL 100 mcg/2 mL IV PRN (11:45)
[2017-01-16] MEDS ORDERED: DiphenhydrAMINE 50mg/ml Inj IVP PRN (11:45)
[2017-01-16] MEDS ORDERED: LORazepam Inj 2mg/ml 1ml IV PRN (11:45)
[2017-01-16] MEDS ORDERED: Metoclopramide 10mg/2ml Inj IVP PRN (11:45)
[2017-01-16] MEDS ORDERED: Atropine Inj 1mg/10ml Syr IV PRN (11:45)
[2017-01-16] MEDS ORDERED: Midazolam 2mg/2ml Inj IVP PRN (11:45)
--- NOTE | 2017-01-16 11:52 | Immediate Post-Op Evaluation ---
Immediate Post-Op Evalulation Immediate Post-Op Evalulation Procedure: CARLOS Date of Evaluation: Jan 16, 2017 Time of Evaluation: 12:28 IV Fluids: 200 LR Blood Products: 0 Estimated Blood Loss: 1 Urinary Output: 0 Blood Pressure Systolic: 105 Blood Pressure Diastolic: 67 Pulse Rate: 64 Respiratory Rate: 16 O2 Sat by Pulse Oximetry: 99 Temperature (Fahrenheit): 97.2 Pain Score (1-10): 2 Nausea: No Vomiting: No Complications 0 Patient Status: awake, reacts, patent, none Hydration Status: adequate Ori Damon MD Jan 16, 2017 11:52
--- NOTE | 2017-01-16 11:52 | Anethesia Preoperative Eval ---
Anesthesia Pre-op PMH/ROS General Date of Evaluation: Jan 16, 2017 Time of Evaluation: 11:17 Anesthesiologist: Nelson ASA Score: ASA 3 Mallampati Score Class I : Soft palate, uvula, fauces, pillars visible Class II: Soft palate, uvula, fauces visible Class III: Soft palate, base of uvula visible Class IV: Only hard plate visible Mallampati Classification: Class III Surgeon: Edgardo Diagnosis: Arrhythmia Surgical Procedure: CARLOS Anesthesia History: none Social History: current smoker Family History: no anesthesia problems Allergies: Coded Allergies: ACETAMINOPHEN (Unverified Allergy, Unknown, 01/08/17) OXYCODONE (Unverified Allergy, Unknown, 01/08/17) Medications: see eMAR Past Medical History Cardiovascular: Reports: HTN - Malignant Pulmonary: Reports: other - Smoker Neurologic/Psychiatric: Reports: CVA PSxH Narrative: TAMMI Anesthesia Pre-op Phys. Exam Physician Exam Last Vital Signs Date Time Temp Pulse Resp B/P Pulse Ox O2 Delivery O2 Flow Rate FiO2 01/16/17 09:05 67 01/16/17 09:00 145/77 01/16/17 07:39 97.2 18 97 Room Air 01/15/17 19:15 21 Constitutional: NAD Neurologic: CN 2-12 intact Cardiovascular: RRR Respiratory: CTA Gastrointestinal: S/NT/ND Airway Exam Mallampati Score: Class III MO: limited ROM: limited Teeth: missing Anesthesia Pre-op A/P Risk Assessment & Plan Assessment: ASA 3 Plan: GA Status Change Before Surgery: No Ori Damon MD Jan 16, 2017 11:52
--- NOTE | 2017-01-16 11:53 | 48 Hour Post Anesthesia Eval ---
Post Anesthesia Evaluation Procedure: CARLOS Date of Evaluation: Jan 16, 2017 Time of Evaluation: 14:37 Blood Pressure Systolic: 146 0: 78 Pulse Rate: 74 Respiratory Rate: 18 Temperature (Fahrenheit): 98.2 O2 Sat by Pulse Oximetry: 96 Airway: patent Nausea: No Vomiting: No Pain Intensity: 2 Hydration Status: adequate Cardiopulmonary Status: Stable Mental Status/LOC: patient returned to baseline Follow-up Care/Observations: 0 Post-Anesthesia Complications: 0 Follow-up care needed: N/A Ori Damon MD Jan 16, 2017 11:53
--- NOTE | 2017-01-16 12:00 | Pulmonology Progress Note ---
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 (3) Acute encephalopathy (4) Hypertensive emergency, no CHF Assessment/Plan all noted bp controlled will need rehab for CARLOS today pt/ot f/u cardio and neuro dc to rehab when ok with cardio Subjective Constitutional: Reports: no symptoms HEENT: Repors: no symptoms Respiratory: Reports: no symptoms Allergies: Coded Allergies: ACETAMINOPHEN (Unverified Allergy, Unknown, 01/08/17) OXYCODONE (Unverified Allergy, Unknown, 01/08/17) Objective Last 24 Hour Vital Signs Date Time Temp Pulse Resp B/P Pulse Ox O2 Delivery O2 Flow Rate FiO2 01/16/17 09:05 67 01/16/17 09:00 68 01/16/17 09:00 63 145/77 01/16/17 09:00 145/77 01/16/17 07:39 97.2 63 18 145/77 97 Room Air 01/16/17 04:00 66 01/16/17 04:00 97.7 72 18 157/72 98 01/16/17 00:00 98.0 60 20 138/63 97 Room Air 01/16/17 00:00 65 01/15/17 22:24 143/86 01/15/17 22:24 143/86 01/15/17 21:11 151/68 01/15/17 20:00 97.7 63 24 140/75 97 Room Air 01/15/17 20:00 65 01/15/17 19:15 71 16 Room Air 21 01/15/17 16:17 97.5 71 18 147/72 98 Room Air 01/15/17 16:00 71 01/15/17 14:49 147/72 01/15/17 14:48 147/72 Intake and Output 01/15/17 01/16/17 19:00 07:00 Intake Total 720 ml Output Total 400 ml 2 ml Balance 320 ml -2 ml Intake Oral 720 ml Output Urine Total 400 ml 2 ml General Appearance: WD/WN HEENT: normocephalic, atraumatic Respiratory/Chest: chest wall non-tender, lungs clear Cardiovascular: normal peripheral pulses, regular rhythm Abdomen: normal bowel sounds, soft, non tender Genitourinary: normal external genitalia Skin: no rash 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, 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 gait Lymphatic: no neck adenopathy, no groin adenopathy Musculoskeletal: normal muscle bulk Current Medications Medications (Trade) Dose Ordered Sig/Melanie Route PRN Reason Start Time Stop Time Status Last Admin Dose Admin Al Hydroxide/Mg Hydroxide (Mylanta) 15 ml Q1H PRN ORAL gi upset 01/16/17 11:45 01/16/17 17:45 Aspirin (ASA) 81 mg DAILY ORAL 01/11/17 14:00 02/10/17 13:59 01/15/17 10:23 Atorvastatin Calcium (Lipitor) 40 mg BEDTIME ORAL 01/13/17 21:00 02/12/17 20:59 01/15/17 21:10 Atropine Sulfate 0.5 mg 0.5 mg Q5M PRN IV HR <40 01/16/17 11:45 01/16/17 17:45 Clonidine HCl (Catapres) 0.1 mg Q8HR ORAL 01/14/17 14:00 02/13/17 13:59 01/15/17 22:24 Clopidogrel Bisulfate (Plavix) 75 mg DAILY ORAL 01/11/17 14:00 02/10/17 13:59 01/15/17 10:13 Dextrose (Dextrose 50%) STAT PRN IV Hypoglycemia 01/13/17 13:15 02/12/17 13:14 Diphenhydramine HCl (Benadryl) 25 mg Q15M PRN IVP Itching 01/16/17 11:45 01/16/17 17:45 Fentanyl Citrate (Sublimaze 100 mcg/2 mL) 25 mcg Q10M PRN IV Moderate Pain (Pain Scale 4-6) 01/16/17 11:45 01/16/17 17:45 Heparin Sodium (Porcine) (Heparin 5000 units/ml) 5,000 units EVERY 12 HOURS SUBQ 01/10/17 21:00 02/09/17 20:59 01/15/17 21:12 Hydralazine HCl (Apresoline) 5 mg Q30M PRN IV SBP>160 / DBP>90 01/16/17 11:45 01/16/17 17:45 Hydralazine HCl (Apresoline) 50 mg Q8HR ORAL 01/15/17 14:00 02/14/17 13:59 01/15/17 22:24 Insulin Aspart (NovoLOG) BEFORE MEALS AND HS SUBQ 01/13/17 16:30 02/12/17 16:29 01/15/17 21:13 Lactated Ringer's (Lactated Ringer's 1000ml) 1,000 ml @ 10 mls/hr Q24H IVLG 01/16/17 11:31 01/16/17 13:30 Levothyroxine Sodium (Synthroid) 50 mcg DAILY@0630 ORAL 01/11/17 06:30 02/10/17 06:29 01/15/17 06:23 Lisinopril (Prinivil) 20 mg EVERY 12 HOURS ORAL 01/10/17 21:00 02/09/17 20:59 01/15/17 21:11 Lorazepam (Ativan 2mg/ml 1ml) 1 mg Q15M PRN IV For Anxiety 01/16/17 11:45 01/16/17 17:45 Meperidine HCl (Demerol) 25 mg Q5M PRN IV Shivering. May repeat x 1 01/16/17 11:45 01/16/17 17:45 Metoclopramide HCl (Reglan) 10 mg Q1H PRN IVP Nausea & Vomiting 01/16/17 11:45 01/16/17 17:45 Midazolam HCl (Versed 2mg/2ml vial) 1 mg Q15M PRN IVP For Anxiety 01/16/17 11:45 01/16/17 17:45 Nifedipine (Procardia XL) 60 mg DAILY ORAL 01/16/17 09:00 02/15/17 08:59 Nitroglycerin (Ntg) 0.4 mg Every 5 Minutes PRN SL Prn Chest Pain 01/10/17 18:00 02/09/17 17:59 Ondansetron HCl (Zofran) 4 mg Q1H PRN IVP Nausea & Vomiting 01/16/17 11:45 01/16/17 17:45 Ondansetron HCl (Zofran) 4 mg Q6H PRN IVP Nausea & Vomiting 01/10/17 18:30 02/09/17 18:29 Pantoprazole (Protonix) 40 mg DAILY ORAL 01/11/17 09:00 02/10/17 08:59 01/15/17 10:16 Polyethylene Glycol (Miralax) 17 gm DAILYPRN PRN ORAL Constipation 01/10/17 19:00 02/09/17 18:59 Sitagliptin Phosphate (Januvia) 50 mg ACBREAKFAST ORAL 01/13/17 14:00 02/12/17 13:59 01/15/17 06:23 Temazepam (Restoril) 15 mg HSPRN PRN ORAL Insomnia 01/10/17 19:00 01/17/17 18:59 IGLESIA LOPES Jan 16, 2017 12:00
--- NOTE | 2017-01-16 12:03 | Pre-Procedure Note/Attestation ---
Pre-Procedure Note/Attestation Complete Prior to Procedure Procedure Narrative: transesophageal echo Indications for Procedure Pre-Operative Diagnosis: cva embolic Attestation I attest that I discussed the nature of the procedure; its benefits; risks and complications; and alternatives (and the risks and benefits of such alternatives ), prior to the procedure, with the patient (or the patient's legal merchandiser retail representative). I attest that, if there was a reasonable possibility of needing a blood transfusion, the patient (or the patient's legal merchandiser retail representative) was given the [facility] standardized written summary, pursuant to the [place] Blood Safety Act ([place] Health and Safety Code # 1645, as amended). I attest that I re-evaluated the patient just prior to the surgery and that there has been no change in the patient's H&P, except as documented below: JESUS ROE Jan 16, 2017 12:03
--- NOTE | 2017-01-16 12:04 | Brief Operative Note ---
Immediate Post Operative Note Operative Note Pre-op Diagnosis: cva embolic Procedure: transesophaeal echo , agitated saline bubble study Post-op Diagnosis: same as pre-op Anesthesia: moderate sedation Specimen: none Complications: none Condition: stable Estimated Blood Loss: none Drains: none Implant(s) used?: No JESUS ROE Jan 16, 2017 12:04
--- NOTE | 2017-01-16 12:06 | Cardiology Progress Note ---
Assessment/Plan Assessment/Plan hypertensive encephalopathy cva ? embolic hyperlipidemia med noncompliance hypothyroid dm untreated mri noted d/w neuro need embolic oliveira cannot start anticoagulation for 2 week labs ok bubble study neg for left to righ shunt holter not avialbel here may need hotler or ziopatch as outpt tele strips reviewed here no afib documented on any of the strip as of 01/15/2017 miguel neg for cardiac source of embolism , normal Vanda velocity , min aortic atheroma , no sig aortic or mitral vavle pathology , no thrombi in left atrium normal wall motion Subjective Cardiovascular: Denies: chest pain, lightheadedness, palpitations Respiratory: Denies: shortness of breath Gastrointestinal/Abdominal: Denies: abdominal pain Genitourinary: Denies: burning Objective Last 24 Hour Vital Signs Date Time Temp Pulse Resp B/P Pulse Ox O2 Delivery O2 Flow Rate FiO2 01/16/17 09:05 67 01/16/17 09:00 68 01/16/17 09:00 63 145/77 01/16/17 09:00 145/77 01/16/17 07:39 97.2 63 18 145/77 97 Room Air 01/16/17 04:00 66 01/16/17 04:00 97.7 72 18 157/72 98 01/16/17 00:00 98.0 60 20 138/63 97 Room Air 01/16/17 00:00 65 01/15/17 22:24 143/86 01/15/17 22:24 143/86 01/15/17 21:11 151/68 01/15/17 20:00 97.7 63 24 140/75 97 Room Air 01/15/17 20:00 65 01/15/17 19:15 71 16 Room Air 21 01/15/17 16:17 97.5 71 18 147/72 98 Room Air 01/15/17 16:00 71 01/15/17 14:49 147/72 01/15/17 14:48 147/72 General Appearance: no apparent distress Neck: supple Cardiovascular: normal rate, regular rhythm Respiratory/Chest: lungs clear, normal breath sounds, no respiratory distress Abdomen: normal bowel sounds, non tender, soft Extremities: no swelling Intake and Output 01/15/17 01/16/17 19:00 07:00 Intake Total 720 ml Output Total 400 ml 2 ml Balance 320 ml -2 ml Intake Oral 720 ml Output Urine Total 400 ml 2 ml JESUS ROE Jan 16, 2017 12:06
--- NOTE | 2017-01-16 18:00 | Procedure Note ---
DATE OF PROCEDURE: 01/16/2017 TRANSESOPHAGEAL ECHOCARDIOGRAPHY REPORT SURGEON: Zach Reynoso M.D. INDICATION FOR THE PROCEDURE: Rule out cardiac source of embolism. REFERRING PHYSICIANS: 1. Deborah Hanson M.D. 2. Joo Puckett M.D. CONSENT: The patient gave informed consent prior to the procedure. PROCEDURE IN DETAIL: The patient was brought to the GI lab, where she was connected to , pulse oximetry, and telemetry, anesthesiologist, and gastrointestinal laboratory staff at this site as well as the vocational rehabilitation technician as well as myself. Once the patient's situation was confirmed and name and medical record number was reviewed, the anesthesiologist provided sedation and once adequately sedated, the patient had a multiplane transesophageal probe was advanced through oropharynx, down into the transesophageal position. Initial trumpet was used for approximation. The patient remained stable throughout the course with no significant drop in blood pressure. Saturations initially were low, but after placing the initial trumpet were adequate and she remained stable throughout the procedure. No immediate complications post procedure. FINDINGS: 1. Normal appearance of the aortic valve. 2. Normal appearance of mitral valve. 3. Tricuspid valve was poorly visualized. 4. Pulmonic valve was normal to the extent visualized. 5. There was no significant atheroma of the proximally ascending aorta or the mid to distal arch and the proximal descending thoracic aorta. 6. There was evidence of left ventricular hypertrophy. 7. Left atrial appendage was fully evaluated. There is no evidence of thrombus within the left atrial appendage. The velocity profile appeared to be adequate. No evidence of thrombus within the left atrium itself. Bubble study was negative for [id number] shunting. There was no color flow evidence of shunting across the atrial septum either. FINAL DIAGNOSES: 1. Normal left ventricular systolic function. 2. Left ventricular hypertrophy. 3. Mild aortic regurgitation. 4. Trivial mitral regurgitation and no significant pulmonic or tricuspid regurgitation noted on transesophageal echocardiogram. 5. No evidence of thrombus within the left atrial appendage or the left atrium itself. 6. No color flow or agitated saline bubble study to suggest shunting across the atrial septum. Zach Reynoso M.D. DR: BHAVIN JOB#: [id number] CC:
--- NOTE | 2017-01-18 19:51 | Discharge Summary ---
Discharge Summary Hospital Course Date of Admission Jan 08, 2017 at 18:21 Date of Discharge Jan 16, 2017 at 18:25 Admitting Diagnosis hypertensive emergency HPI Chiara Tapia is a 66 year old female who was admitted on Jan 08, 2017 at 18: 21 for Hypertensive Emergency Hospital Course [id number] Discharge Discharge Disposition Patient was discharged to SNF/Subacute Facility(03) Discharge Diagnoses: Discharge Instructions Discharge Instructions Follow up with: MD at the facility Activity: resume normal activities, as tolerated Tamy Temple NP Jan 18, 2017 19:51
--- NOTE | 2017-01-19 10:31 | Discharge Summary 2 SIG ---
DATE OF ADMISSION: 01/08/2017 DATE OF DISCHARGE: 01/16/2017 CONSULTANTS: 1. Zach Reynoso M.D. 2. Josesito Renteria M.D. 3. Joo Puckett M.D. BRIEF HOSPITAL COURSE: The patient is a 66-year-old female with history of hypertension, who has stopped taking blood pressure medications, was brought in from [facility] for hypertensive emergency. The patient went to urgent care because she felt dizzy. PA from [facility] called and said the patient had a new T-wave inversion in leads V4 to V6, which was not seen on previous EKGs. T-wave inversions in leads 1 and aVL are however old. On arrival to ED, blood pressure was elevated to 247/123. EKG was done and showed sinus rhythm with first-degree AV block and ST depressions in leads V5 to V6. There was no improvement in blood pressure and the patient was started on esmolol drip. Blood work showed acute kidney injury. The patient was then admitted to ICU for hypertensive emergency and acute encephalopathy. She underwent cardiac evaluation with Dr. Reynoso. Records from [facility] was reviewed. She has history of hypertension, hyperlipidemia, hypothyroidism, status post hysterectomy, and had some issues previously with compliance with medications. Cardiac enzymes were negative. Echocardiogram performed showed [id number] tricuspid regurgitation, PA pressure of 46%, and ejection fraction is estimated at 55%. She was continued on clonidine 0.1 b.i.d. and amlodipine 10 mg was resumed. Synthroid was restarted. Renal parameters were monitored. During hospitalization, the patient developed slurring of speech. MRI of the brain without contrast revealed 4 x 2 cm focus of diffusion restriction, left cerebellum extending to the left brachium pontis, which is consistent with acute ischemic stroke. There was no evidence of bleeding. There is a punctate 2 to 3 mm foci of diffusion restriction on left parietal white matter and boothe radiata, left inferior cortex, and questionable right posterior thalamic focus, and punctate peripheral right posterior parietal cortex, which is suspected to have embolic phenomena. There is a small vessel infarct noted throughout the boothe radiata and signal intensity foci in the cerebellum and brainstem thalami probably due to the paucity of hemosiderin, may be related to chronic hypertension. Neurological evaluation was done. The patient with signs of acute left briaan ataxia, which progressed further with dysarthria. She was placed on aspirin, Plavix, and Lipitor with strict BP control and sugar control. She underwent physical, occupational, and speech therapy. Carotid duplex exam showed mild stenosis. The patient needed embolic workup. Tele strips were negative for evidence of atrial fibrillation. On 01/16/2017, she underwent transesophageal echocardiogram. Bubble study was negative for left to right shunt. Holter not available and would need Holter or Zio patch as outpatient and to start anticoagulation for two weeks. CARLOS was negative for cardiac source of embolism with normal BERTO velocity and minimal aortic atheroma. There was no significant aortic or mitral valve pathology. No thrombi in the left atrium with normal wall motion. The patient was eventually discharged to [facility] to continue rehabilitation. FINAL DIAGNOSES: 1. Acute ischemic stroke consistent with embolism. 2. Hypertensive emergency. 3. Acute encephalopathy. 4. Hyperlipidemia. 5. Hypothyroidism. 6. Medication noncompliance. 7. Hyperlipidemia. 8. Moderate pulmonary hypertension. 9. Moderate tricuspid regurgitation. 10. Diabetes mellitus, new onset, out of control. DISPOSITION: The patient was discharged home. DISCHARGE MEDICATIONS: Refer to med list. FOLLOWUP: The patient would eventually need Zio patch and Holter monitoring as outpatient. Follow up with PMD and Cardiology within a week. Deborah Hanson M.D. I have been assigned to dictate discharge summary on this account and I was not involved in the patient's management. Tamy Temple N.P. DR: SHREYA JOB#: [id number] CC: [id number]
== END 2017-01-16 18:25 | DRG 77 ==
LOC: EDBD 15:58 → EMR 18:18 → ICU 18:21 → EDBEDREQ 18:32 → 2E 01-10 17:22
PROC: B24BZZ4 Ultrasonography of Heart with Aorta, Transesophageal (ICD-10-PCS; principal; 2017-01-16 11:38)
DX: I67.4 Hypertensive encephalopathy (principal); I63.432 Cerebral infarction due to embolism of left posterior cerebral artery; I63.412 Cerebral infarction due to embolism of left middle cerebral artery; I27.2 Other secondary pulmonary hypertension; I07.1 Rheumatic tricuspid insufficiency; I16.1 Hypertensive emergency; E03.9 Hypothyroidism, unspecified; R47.1 Dysarthria and anarthria; I35.1 Nonrheumatic aortic (valve) insufficiency; I12.9 Hypertensive chronic kidney disease with stage 1 through stage 4 chronic kidney disease, or unspecified chronic kidney disease; N18.9 Chronic kidney disease, unspecified; I99.8 Other disorder of circulatory system; Z91.14 Patient's other noncompliance with medication regimen; E78.00 Pure hypercholesterolemia, unspecified; E11.9 Type 2 diabetes mellitus without complications; R27.8 Other lack of coordination; R47.81 Slurred speech; Z88.6 Allergy status to analgesic agent
CPT/HCPCS: 36415; 70551; 71010; 80053; 80061; 81001; 82550; 82553; 82962; 82977; 83036; 83525; 83735; 83880; 84100; 84443; 84484; 84550; 85025; 85610; 85730; 86140; 87081; 87086; 93005; 93306; 93312; 93880; 94003; 94150; 94664; J1815; J2250; J2405; J3490